=== PATIENT | female | born 2000 | race Caucasian/White ===

== ENCOUNTER → 2019-11-23 17:35 | Outpatient (BNVA) | payer SELFPAY | PROVIDERS: Family Provider Nurse Practitioner; PCP Nurse Practitioner; Visit Provider Nurse Practitioner Family | DX: R50.9 Fever, unspecified (principal) | CPT/HCPCS: 87804 ==

== ENCOUNTER → 2019-12-08 09:04 | Outpatient (BNVA) | payer SELFPAY | PROVIDERS: Family Provider Nurse Practitioner; PCP Nurse Practitioner; Visit Provider Nurse Practitioner Family | DX: R10.84 Generalized abdominal pain (principal); K21.9 Gastro-esophageal reflux disease without esophagitis; Z90.49 Acquired absence of other specified parts of digestive tract | CPT/HCPCS: 81003 ==

== ENCOUNTER 2019-12-10 12:28 | Outpatient (CLI) | payer SELFPAY ==
--- NOTE | 2019-12-10 12:40 | XR_ITS ---
WS: [id number] KUB, 12/10/2019 Clinical Data: GENERALIZED ABDOMINAL PAIN Comparison: Flat and upright films of the abdomen, 04/19/2016. Findings: No abnormal intraabdominal masses or calcifications are seen. There is no dilatated small bowel or ev idence of obstruction. There is a moderate amount of fecal material in the colon. There are clips in the right upper quadran t from a cholecystectomy. XR/XR KUB [id number] Impression: Negative KUB.
[2019-12-10 13:25] LABS: Basophils % 0.4 %; Eosinophils # 0.1 10^3/uL (0.0-0.8); Eosinophils % 1.5 %; Hematocrit 40.6 % (37.0-47.0); Hemoglobin 12.8 g/dL (11.5-15.3); Lymphocytes # 2.7 10^3/uL (0.8-4.8); Lymphocytes % 37.1 %; Mean Corpuscular HGB Conc 31.5 g/dL (30.0-36.0); Mean Corpuscular Hemoglobin 26.5 pg (28.0-34.0); Mean Corpuscular Volume 84.1 fL (81-99); Mean Platelet Volume 9.4 fL (7.4-10.4); Monocytes # 0.6 10^3/uL (0.2-0.9); Monocytes % 8.4 %; Neutrophils # 3.8 10^3/uL (1.8-7.7); Neutrophils % 52.2 %; Nucleated Red Blood Cells % 0 %; Platelet Count 362 10^3/cmm (130-400); Red Blood Count 4.83 10^6/uL (4.1-5.3); Red Cell Distribution Width 12.8 % (12.1-15.1); White Blood Count 7.3 10^3/uL (4.0-10.0)
[2019-12-10 13:45] LABS: Alanine Aminotransferase 9 U/L (0-33); Albumin Level 3.6 g/dL (3.5-5.2); Alkaline Phosphatase 103 IU/L (35-105); Anion Gap 13.5 (5-19); Aspartate Amino Transferase 12 U/L (0-32); Blood Urea Nitrogen 7 mg/dL (6-20); Calcium 9.4 mg/dL (8.5-10.5); Carbon Dioxide 26 mmol/L (22-29); Chloride 102 mmol/L (98-107); Glomerular Filtration Rate 126.2 mL/min (90-130); Glucose 112 mg/dL (74-109); Potassium 4.5 mmol/L (3.5-5.1); Sodium 137 mmol/L (136-145); Total Bilirubin 0.2 mg/dL (0.15-1.2); Total Protein 7.6 g/dL (6.6-8.7)
== END 2019-12-10 12:29 | disposition home or self-care (01) ==
PROVIDERS: Family Provider Nurse Practitioner; PCP Nurse Practitioner; Visit Provider Nurse Practitioner Family
DX: R10.84 Generalized abdominal pain (principal)
CPT/HCPCS: 74018; 80053; 85025

== ENCOUNTER → 2020-09-05 15:04 | Outpatient (BNVA) | payer OTHER, SELFPAY | PROVIDERS: Family Provider Nurse Practitioner; PCP Nurse Practitioner; Visit Provider Nurse Practitioner | DX: Z11.59 Encounter for screening for other viral diseases (principal) | CPT/HCPCS: 87635 ==

== ENCOUNTER → 2020-10-24 10:05 | Outpatient (BNVA) | payer SELFPAY | PROVIDERS: Family Provider Nurse Practitioner; PCP Nurse Practitioner; Visit Provider Nurse Practitioner Family | DX: M25.571 Pain in right ankle and joints of right foot (principal); M79.671 Pain in right foot | CPT/HCPCS: 73610; 73630 ==

== ENCOUNTER → 2020-11-23 10:29 | Outpatient (BNVA) | payer OTHER, SELFPAY | PROVIDERS: Family Provider Nurse Practitioner; PCP Nurse Practitioner; Visit Provider Nurse Practitioner Family | DX: Z20.828 Contact with and (suspected) exposure to other viral communicable diseases (principal); J06.9 Acute upper respiratory infection, unspecified | CPT/HCPCS: 87635 ==

== ENCOUNTER → 2021-05-18 10:10 | Outpatient (BNVA) | payer SELFPAY | PROVIDERS: Family Provider Nurse Practitioner; PCP Nurse Practitioner; Visit Provider Registered Nurse Neonatal Intensive Care | DX: J02.0 Streptococcal pharyngitis (principal) | CPT/HCPCS: 87880 ==

== ENCOUNTER 2021-07-16 17:41 | Emergency (ER) | payer SELFPAY ==
[2021-07-16 17:59] VITALS: BP 133/87; PULSE 98; RESP 18; TEMP 36.9; O2SAT 100; BMI 44.9
--- NOTE | 2021-07-16 20:46 | CTR_ITS ---
PROCEDURE INFORMATION: Exam: CT Abdomen And Pelvis With Contrast Exam date and time: 07/16/2021 8:46 PM Age: 20 years old Clinical indication: Nausea and vomiting and other: Diarrhea; Abdominal pain; Localized; Right lower quadrant (rlq); Prior surgery; Surgery type: Gb; Additional info: Abd apin since Friday right sided TECHNIQUE: Imaging protocol: Computed tomography of the abdomen and pelvis with contrast. Radiation optimization: All CT scans at this facility use at least one of these dose optimization techniques: automated exposure control; mA and/or kV adjustment per patient size (includes targeted exams where dose is matched to clinical indication); or iterative reconstruction. Contrast material: OMNI 300; Contrast volume: 95 ml; Contrast route: INTRAVENOUS (IV); COMPARISON: CT Abdomen/Pelvis Renal [id number] 01/05/2018 10:25 PM RADIATION DOSE METRICS: Total DLP (mGy-cm): 1892.9 FINDINGS: Lungs: The lung bases are clear. No effusion Liver: Normal. No mass. Gallbladder and bile ducts: There has been a cholecystectomy. Pancreas: Normal. No ductal dilation. Spleen: Normal. No splenomegaly. Adrenal glands: Normal. No mass. Kidneys and ureters: Normal. No hydronephrosis. Stomach and bowel: Unremarkable. No obstruction. No mucosal thickening. Appendix: No evidence of appendicitis. Intraperitoneal space: Unremarkable. No free air. No significant fluid collection. Vasculature: Unremarkable. No abdominal aortic aneurysm. Lymph nodes: Single, nonspecific mildly enlarged mesenteric lymph node, possibly reactive. Urinary bladder: Unremarkable as visualized. Reproductive: 3.1 cm left ovarian cyst. Bones/joints: Unremarkable. No acute fracture. Soft tissues: Nonspecific 2.7 by 1.7 cm left breast lesion. Consider evaluation by dedicated breast imaging center. CT/CT abdomen pelvis w con* [id number] IMPRESSION: 1. No cause for acute pain is identified. 2. Nonspecific 2.7 by 1.7 cm left breast lesion. Consider evaluation by dedicated breast imaging center. 3. 3.1 cm left ovarian cyst. Radiation Dose CTDIVOL = (mGy): DLP = 1892.9 (mGy-cm)
--- NOTE | 2021-07-16 20:48 | ED_ITS ---
HPI - Abdominal Pain General: Chief Complaint: Abdominal Pain Stated Complaint: Rt side Pain, Throwing up, Diarrhea Time Seen by Provider: 07/16/21 20:40 History of Present Illness: HPI narrative: Patient states she has had right- sided abdominal pain since Friday. Said she has had a fever. Also has had some diarrhea and vomiting. Is able to keep fluids down but not able to eat. He has had her gallbladder taken out past. Was told she had irritable bowel even though she is not had any testing done to confirm this. MD elicited complaint: abdominal pain Pertinent past history: other (Removal of gallbladder) Onset (ago): day(s) Pain Consistency: constant Location: RUQ and RLQ Severity: moderate Quality: cramping and aching Radiation: RLQ Relieving factors: nothing Associated Symptoms: Reports fever(s), vomiting and other (Diarrhea) Related Data: Date of Last Menstrual Period: 06/13/21 Review of Systems Const: Reports: fever(s) Eyes: Denies: change in vision or blurry vision ENMT: Denies: throat pain or nasal congestion Card: Denies: chest pain or dyspnea on exertion Resp: Denies: dyspnea, productive cough or non-productive cough GI: Reports: vomiting and other (Diarrhea) Musc: Denies: extremity pain Skin/Breast: Denies: rash Neuro: Denies: headache(s) Psych: Denies: anxiety or depression Edmund/Lymph: Denies: easy bruising PFS ED PFSH: Medical History Acid reflux IBS (irritable bowel syndrome) Obesity, morbid, BMI 40.0-49.9 Surgical History Hx of cholecystectomy 2019 Family History Other Cancer Chronic kidney disease (CKD) Diabetes Hypertension Denies family history of Dementia Stroke Social History Second hand smoke exposure: No Smoking risk assessment/counseling performed?: No Alcohol intake: current Alcohol intake frequency: holidays/special occasions only Desire information about alcohol rehabilitation?: No Counseling given: No Desire information about substance/drug rehabilitation?: No Counseling given: No Adopted: No Caregiver/support person: No Lives independently: Yes Household members: significant other Housing: House Marital status: Single Number of children: 0 service: No Current occupational status: employed Current occupation: [employer] History of recent travel: No Sexually active: Yes Current gender identity: Female Female Reproductive History: Date of last menstrual period: 06/13/21 Para: 0 Physical Exam Const: COMMON NORMALS: no acute distress, average body habitus and patient oriented x3 HENMT: COMMON NORMALS: normocephalic HEAD & SCALP: normal to inspection and normocephalic FACE & SINUS: normal facial exam Eye: COMMON NORMALS: conjunctivae normal GENERAL EYE: appearance normal, both eyes and all related structures CONJUNCTIVA: Yes conjunctivae normal Neck/C-Spine: COMMON NORMALS: no JVD Chest: COMMONS NORMALS: normal inspection of the chest Resp: COMMON NORMALS: normal respiratory effort and clear to auscultation bilaterally AUSCULTATION: clear to auscultation bilaterally Cardio: COMMON NORMALS: no JVD, regular rate and regular rhythm RATE: regular rate RHYTHM: regular rhythm GI: AUSCULTATION: Yes normoactive bowel sounds PALPATION: Yes Tenderness to palpation present (GI) Details: RLQ and RUQ Extremity: COMMON NORMALS: normal to inspection and full ROM Neuro: COMMON NORMALS: patient oriented x3 Course Vital Signs: Vital signs: Vital Signs Temperature 98.4 F 07/16/21 17:59 Pulse Rate 83 07/16/21 23:25 Respiratory Rate 20 H 07/16/21 23:25 Blood Pressure 154/90 07/16/21 23:25 Pulse Oximetry 100 07/16/21 23:25 MDM - Abdominal Pain MDM Narrative: Medical decision making narrative: Abdominal pain unspecified. Possible IBS. Possible gastroenteritis. Patient follow-up primary care provider if no significant improvement. Differential Diagnosis: Differential diagnosis abdominal pain: Likely abdominal pain, acute appendicitis, constipation and gastroenteritis Lab Data: Labs: Lab Results 07/16/21 07/16/21 07/16/21 Range/Units 21:10 21:10 21:45 WBC 14.5 H (4.0-10.0) 10^3/ uL RBC 4.88 (4.1-5.3) 10^6/u L Hgb 13.0 (11.5-15.3) g/dL Hct 41.3 (37.0-47.0) % MCV 84.6 (81-99) fl MCH 26.6 L (28.0-34.0) pg MCHC 31.5 (30.0-36.0) g/dL RDW 13.4 (12.1-15.1) % Plt Count 424 H (130-400) 10^3/c mm MPV 10.1 (7.4-10.4) fL Neut % (Auto) 67.7 % Lymph % (Auto) 24.8 % [place] % (Auto) 6.1 % Eos % (Auto) 0.6 % Baso % (Auto) 0.3 % Neut # (Auto) 9.83 H (1.8-7.7) 10^3/u L Lymph # (Auto) 3.6 (0.8-4.8) 10^3/u L [place] # (Auto) 0.9 (0.2-0.9) 10^3/u L Eos # (Auto) 0.1 (0.0-0.8) 10^3/u L Baso # (Auto) 0.0 (0.0-0.1) 10^3/u L Nucleated RBC % (a uto) 0 % Nucleated RBCs # 0.0 /100WBC Sodium 139 (136-145) mmol/L Potassium 4.2 (3.5-5.1) mmol/L Chloride 103 (98-107) mmol/L Carbon Dioxide 23 (22-29) mmol/L Anion Gap 17.2 (5-19) BUN 6 (6-20) mg/dL Creatinine 0.5 (0.5-0.9) mg/dL GFR Calculation 154.3 H (90-130) mL/min Glucose 81 (65-115) mg/dL Calculated Osmolal ity 285 (285-295) mOsm/k g Calcium 9.2 (8.5-10.5) mg/dL Total Bilirubin 0.2 (0.15-1.2) mg/dL AST 11 (0-32) U/L ALT 9 (0-33) U/L Alkaline Phosphata se 125 H (35-105) IU/L Total Protein 7.0 (6.6-8.7) g/dL Albumin 4.0 (3.5-5.2) g/dL Globulin 3.0 (1.3-4.6) g/dL Lipase 24 (13-60) U/L HCG, Qual Negative (Negative) Urine Color (Yellow) Urine Appearance (CLEAR) Urine pH (5-7) Ur Specific Gravit y (1.005-1.030) Urine Protein (Negative) Urine Glucose (UA) (Normal) Urine Ketones (Negative) Urine Blood (Negative) Urine Nitrate (Negative) Urine Bilirubin (Negative) Urine Urobilinogen (Negative) mg/dL Ur Leukocyte Tiffanie ase (Negative) 07/16/21 Range/Units 21:45 WBC (4.0-10.0) 10^3/ uL RBC (4.1-5.3) 10^6/u L Hgb (11.5-15.3) g/dL Hct (37.0-47.0) % MCV (81-99) fl MCH (28.0-34.0) pg MCHC (30.0-36.0) g/dL RDW (12.1-15.1) % Plt Count (130-400) 10^3/c mm MPV (7.4-10.4) fL Neut % (Auto) % Lymph % (Auto) % [place] % (Auto) % Eos % (Auto) % Baso % (Auto) % Neut # (Auto) (1.8-7.7) 10^3/u L Lymph # (Auto) (0.8-4.8) 10^3/u L [place] # (Auto) (0.2-0.9) 10^3/u L Eos # (Auto) (0.0-0.8) 10^3/u L Baso # (Auto) (0.0-0.1) 10^3/u L Nucleated RBC % (a uto) % Nucleated RBCs # /100WBC Sodium (136-145) mmol/L Potassium (3.5-5.1) mmol/L Chloride (98-107) mmol/L Carbon Dioxide (22-29) mmol/L Anion Gap (5-19) BUN (6-20) mg/dL Creatinine (0.5-0.9) mg/dL GFR Calculation (90-130) mL/min Glucose (65-115) mg/dL Calculated Osmolal ity (285-295) mOsm/k g Calcium (8.5-10.5) mg/dL Total Bilirubin (0.15-1.2) mg/dL AST (0-32) U/L ALT (0-33) U/L Alkaline Phosphata se (35-105) IU/L Total Protein (6.6-8.7) g/dL Albumin (3.5-5.2) g/dL Globulin (1.3-4.6) g/dL Lipase (13-60) U/L HCG, Qual (Negative) Urine Color Yellow (Yellow) Urine Appearance Clear (CLEAR) Urine pH 6 (5-7) Ur Specific Gravit y 1.015 (1.005-1.030) Urine Protein Neg (Negative) Urine Glucose (UA) Norm (Normal) Urine Ketones Negative (Negative) Urine Blood Neg (Negative) Urine Nitrate Negative (Negative) Urine Bilirubin Neg (Negative) Urine Urobilinogen Norm (Negative) mg/dL Ur Leukocyte Tiffanie ase Negative (Negative) Discharge Plan Discharge Patient Disposition: Home Clinical Impression: Lesion of breast Abdominal pain Qualifiers: Abdominal location: right upper quadrant Qualified Code(s): R10.11 - Right upper quadrant pain Condition: Stable Prescriptions: New Zofran 4 mg tablet 4 mg PO Q8H 3 Days Qty: 9 RF: 0 Celebrex 100 mg capsule 100 mg PO BID Qty: 20 RF: 0 No Action dicyclomine 10 mg capsule 10 mg PO TID Qty: 90 RF: 0 Contrave 8-90 mg tablet extended release 2 tab PO Q12H Qty: 120 RF: 0 Probiotic 1 cap PO DAILY RF: 0 Discharge Orders: Discharge ED (Routine); Ordered 07/16/21 Ordered By: Olman Platt Referrals: Zac Shukla, TRAFFIC ROUTING ENGINEER-C [Primary Care Provider] - Discharge Diet: Advance as tolerated Discharge Activity: Resume usual activity Patient Instructions: Abdominal Pain (ED) Activity Restrictions/Additional Instructions: Follow-up with medical provider as directed. Take medications as prescribed. Return to the ER or your medical provider if condition worsens. Please read and understand discharge instructions. If any questions ask please. Follow-up with Zac Shukla and see about getting scheduled at the breast care center about getting ultrasound on the lesion it was identified on the CAT scan of your left breast. Stand Alone Forms: Work/School Release Coding Level of Care Code ED Dog Trainer for Aubrey Fwd Exam Comprehensive
[2021-07-16 21:26] LABS: Basophils % 0.3 %; Eosinophils # 0.1 10^3/uL (0.0-0.8); Eosinophils % 0.6 %; Hematocrit 41.3 % (37.0-47.0); Lymphocytes # 3.6 10^3/uL (0.8-4.8); Lymphocytes % 24.8 %; Mean Corpuscular HGB Conc 31.5 g/dL (30.0-36.0); Mean Corpuscular Hemoglobin 26.6 pg (28.0-34.0); Mean Corpuscular Volume 84.6 fl (81-99); Mean Platelet Volume 10.1 fL (7.4-10.4); Monocytes # 0.9 10^3/uL (0.2-0.9); Monocytes % 6.1 %; Neutrophils # 9.83 10^3/uL (1.8-7.7); Neutrophils % 67.7 %; Nucleated Red Blood Cells % 0 %; Platelet Count 424 10^3/cmm (130-400); Red Blood Count 4.88 10^6/uL (4.1-5.3); Red Cell Distribution Width 13.4 % (12.1-15.1); White Blood Count 14.5 10^3/uL (4.0-10.0)
[2021-07-16 21:48] LABS: Alanine Aminotransferase 9 U/L (0-33); Alkaline Phosphatase 125 IU/L (35-105); Anion Gap 17.2 (5-19); Aspartate Amino Transferase 11 U/L (0-32); Blood Urea Nitrogen 6 mg/dL (6-20); Calcium 9.2 mg/dL (8.5-10.5); Carbon Dioxide 23 mmol/L (22-29); Chloride 103 mmol/L (98-107); Glomerular Filtration Rate 154.3 mL/min (90-130); Glucose 81 mg/dL (65-115); Lipase 24 U/L (13-60); Osmolality Calculated 285 mOsm/kg (285-295); Potassium 4.2 mmol/L (3.5-5.1); Sodium 139 mmol/L (136-145); Total Bilirubin 0.2 mg/dL (0.15-1.2)
[2021-07-16] MEDS: ketorolac 30 mg/mL INJ IVP (21:53)
[2021-07-16] MEDS: sodium chloride 0.9% 1,000 ML 999 ML IV (21:54)
[2021-07-16] MEDS: ketorolac 60 mg/2 mL INJ IM (21:54)
[2021-07-16 22:02] VITALS: BP 131/97; PULSE 84; RESP 16
[2021-07-16 22:16] LABS: Add Urine Microscopic? NO; Charge for UA Resulting for Rev
[2021-07-16 22:17] LABS: Bilirubin Urine Neg (Negative); Blood Urine Neg (Negative); Glucose Urine UA Norm (Normal); Ketones Urine Negative (Negative); Leukocyte Esterase Urine Negative (Negative); Nitrate Urine Negative (Negative); Protein Urine Neg (Negative); Specific Gravity, Urine 1.015 (1.005-1.030); Urine Appearance Clear (CLEAR); Urine Color Yellow (Yellow); Urobilinogen Urine Norm (Negative); pH Urine 6 (5-7)
[2021-07-16 22:19] LABS: HCG Qualitative Urine. Negative (Negative)
[2021-07-16] MEDS: iohexol 300 mg/mL 100 mL Btl IV (22:36)
[2021-07-16 23:25] VITALS: BP 154/90; PULSE 83; RESP 20; O2SAT 100
== END 2021-07-16 23:26 | disposition home or self-care (01) ==
PROVIDERS: Emergency Medicine; Emergency Provider Nurse Practitioner Family; PCP Nurse Practitioner
DX: R10.11 Right upper quadrant pain (principal); N64.9 Disorder of breast, unspecified
CPT/HCPCS: 74177; 80053; 81003; 81025; 83690; 85025; 96361; 96374; 99283; J1885; J7030; Q9967

== ENCOUNTER 2022-03-11 17:06 | Emergency (ER) | payer SELFPAY ==
[2022-03-11 17:11] VITALS: BP 144/86; PULSE 99; RESP 18; TEMP 36.4; O2SAT 98; BMI 44.9
--- NOTE | 2022-03-11 17:37 | W.ED.ANIMALB ---
HPI - Animal Bite General: Chief Complaint: Animal Bite Stated Complaint: Just needs a tetanus Shot Time Seen by Provider: 03/11/22 17:14 History of Present Illness: Patient is a 21-year-old female comes to the ED with a dog bite. Dog bite injury on distal end of first digit on right hand. Dog bite occurred earlier today when she was breaking up a fight between her dog and her friend's dog. Both dogs are fully vaccinated and have been vaccinated for rabies as well. Patient cleaned dog bite wound and then applied Band-Aid on it before coming to the ED. Patient needs an updated tetanus shot. Associated symptoms: Deny chills, fever(s) or headache(s) Review of Systems Const: Denies: fever(s), chills or fatigue Eyes: Denies: change in vision or eye discomfort ENMT: Denies: throat pain, odynophagia, nasal discharge or nasal congestion Card: Denies: chest pain, palpitations, edema, swelling of feet/ankles, dyspnea on exertion or orthopnea Resp: Denies: dyspnea, productive cough or non-productive cough GI: Denies: abdominal pain, nausea, vomiting, diarrhea, constipation or hematochezia : Denies: flank pain, dysuria or hematuria Musc: Denies: neck pain, back pain or extremity swelling Skin/Breast: Reports: new lesions (Dog bite puncture wound to finger right hand.); Denies: rash Neuro: Denies: headache(s), numbness in extremities or weakness in extremities PFS ED PFSH: Medical History Acid reflux IBS (irritable bowel syndrome) Obesity, morbid, BMI 40.0-49.9 Surgical History Hx of cholecystectomy 2019 Family History Other Cancer Chronic kidney disease (CKD) Diabetes Hypertension Denies family history of Dementia Stroke Social History Smoking and tobacco status: never smoked Second hand smoke exposure: No Smoking risk assessment/counseling performed?: No Alcohol intake: current Alcohol intake frequency: holidays/special occasions only Desire information about alcohol rehabilitation?: No Counseling given: No Desire information about substance/drug rehabilitation?: No Counseling given: No Adopted: No Caregiver/support person: No Lives independently: Yes Household members: significant other Housing: House Marital status: Single Number of children: 0 service: No Current occupational status: employed Current occupation: [employer] History of recent travel: No Sexually active: Yes Current gender identity: Female Female Reproductive History: Date of last menstrual period: 06/13/21 Para: 0 Physical Exam Const: COMMON NORMALS: no acute distress, patient oriented x3 and alert GENERAL APPEARANCE: cooperative and comfortable HENMT: COMMON NORMALS: normocephalic HEAD & SCALP: normocephalic MOUTH: Normal oral and palatal mucosa present THROAT: posterior oropharynx normal and uvula midline Neck/C-Spine: COMMON NORMALS: supple GENERAL: Yes normal visual inspection Resp: COMMON NORMALS: normal respiratory effort, No retractions, No use of accessory muscles and clear to auscultation bilaterally AUSCULTATION: clear to auscultation bilaterally Cardio: COMMON NORMALS: regular rate, regular rhythm, S1 normal heart sound present, S2 normal heart sound present, No gallops present (Cardio), No clicks present (Cardio), No murmurs present (Cardio) and Peripheral pulses 2+ throughout RATE: regular rate RHYTHM: regular rhythm HEART SOUNDS: S1 normal heart sound present and S2 normal heart sound present PERIPHERAL PULSES: Peripheral pulses 2+ throughout GI: COMMON NORMALS: Normal to inspection, nondistended, normoactive bowel sounds present, Soft to palpation, non-tender and no masses PALPATION: Yes Soft to palpation : COMMON NORMALS: Yes no CVA tenderness BLADDER/KIDNEY EXAM: Yes no CVA tenderness Back/Pelvis: COMMON NORMALS: no CVA tenderness Extremity: NARRATIVE EXTREMITY EXAM: Dog bite puncture wound on right index finger. Wound is superficial. No nailbed or nail damage noted. No active bleeding seen. GENERAL: Yes normal exam except as noted Neuro: COMMON NORMALS: patient oriented x3 and moves all extremities SENSORIUM/ORIENTATION: Yes alert Skin: NARRATIVE SKIN EXAM: Dog bite puncture wound on right index finger. Wound is superficial. No nailbed or nail damage noted. No active bleeding seen. GENERAL SKIN EXAM: dry skin Course Vital Signs: Vital signs: Vital Signs Temperature 97.5 F L 03/11/22 17:11 Pulse Rate 99 03/11/22 17:11 Respiratory Rate 18 03/11/22 17:11 Blood Pressure 144/86 03/11/22 17:11 Pulse Oximetry 98 03/11/22 17:11 MDM - Animal Bite Medical Decision Making Patient is a 21-year-old female comes to the ED with dog bite. She was breaking up a fight between her dog and her friend's dog. Both dogs are fully vaccinated including their rabies shot. Patient does not have updated tetanus and came to the ED to get tetanus shot. has superficial dog bite to distal end of right index finger. No nailbed or nail damage noted. Vital stable. Patient appears nontoxic and in no acute distress or pain. She was given updated tetanus here in the ED. She was discharged home with a prescription for Augmentin. Told to follow-up with PCP in the next week for reevaluation. Return to ED precautions given. Patient stood agree with plan. Discharge Plan Discharge Patient Disposition: Home Clinical Impression: Dog bite of finger Qualifiers: Encounter type: initial encounter Qualified Code(s): S61.259A - Open bite of unspecified finger without damage to nail, initial encounter Condition: Stable Prescriptions: New Augmentin 500-125 mg tablet 1 tab PO BID 7 Days Qty: 14 0RF No Action triamcinolone acetonide 0.1 % cream 1 applic topical BID Qty: 80 0RF prednisone 20 mg tablet See Rx Instructions PO DAILY 11 Days Qty: 19 0RF Rx Instructions: Take 3 tabs x 3 days then 2 tabs x 3 days then 1 tab x 3 days then 1/2 tab x 2 days. azithromycin [Zithromax Z-Quan] 250 mg tablet See Rx Instructions PO .COMPLEX Qty: 6 0RF Rx Instructions: For 250 mg dose pack: take 500 mg today (day 1), then 250 mg for 4 days (days 2-5) PO budesonide-formoterol [Symbicort] 160-4.5 mcg/actuation HFA aerosol inhaler 2 puff inhalation Q12H Qty: 10.2 6RF ProAir RespiClick 90 mcg/actuation aerosol powdr breath activated 2 inh inhalation QID PRN (Reason: shortness of breath or wheezing) Qty: 1 6RF Probiotic 1 cap PO DAILY 0RF Discharge Orders: Discharge ED (Routine); Ordered 03/11/22 Ordered By: Yaw Hines Referrals: Zac Shukla, TIN WHIZ MACHINE OPERATOR-C [Primary Care Provider] - Discharge Diet: Regular Discharge Activity: Resume usual activity Patient Instructions: Animal Bite (ED) Activity Restrictions/Additional Instructions: Follow-up with medical provider as directed in the next 7 to 10 days reevaluation. Take medications as prescribed. Keep dog bite puncture wound cleaned and daily and apply triple antibiotic ointment and bandage on it as well. Return to the ER or your medical provider if condition worsens. Please read and understand discharge instructions. Thank you for choosing [facility] for your healthcare needs today. Please realize this is an emergency room and that we are providing you with a medical screening exam and this may not be complete and all inclusive of all the testing and or work up that you may need to determine your ailment or severity of your illness. It is very important that you follow up as instructed or that you return to the Emergency Department should you have concerns or if your condition changes or worsens in any way. Coding Level of Care Code ED Landscaping Crew Leader for Aubrey Mcdaniels Exam Comprehensive
[2022-03-11] MEDS: tetanus-dipt-pertussis 0.5 mL SDV IM (17:47)
[2022-03-11] MEDS: amoxicillin-clav 500-125 mg Tablet 1 TAB PO (17:47)
== END 2022-03-11 18:00 | disposition home or self-care (01) ==
PROVIDERS: Emergency Provider Physician Assistant; PCP Nurse Practitioner
DX: S60.470A Other superficial bite of right index finger, initial encounter (principal); W54.0XXA Bitten by dog, initial encounter; Z23 Encounter for immunization
CPT/HCPCS: 90471; 90715; 99283

== ENCOUNTER 2022-07-24 11:09 | Emergency (ER) | payer MEDICAID, SELFPAY ==
[2022-07-24 11:37] VITALS: BP 139/94; PULSE 90; RESP 18; TEMP 36.6; O2SAT 98; BMI 41.9
--- NOTE | 2022-07-24 12:31 | US_ITS ---
WS: [id number] EARLY OBSTETRICAL ULTRASOUND (<14 WEEKS). HISTORY: eval preg COMPARISON: None available. Single intrauterine gestational sac is identified. Suboptimal M-mode tracing of the heart. Heart rate documented at 180 but poorly visualized racing. [place]-rump length measures 2.7 cm which corresponds to a gestation of 9w3d. No yolk sac identified. Cannot evaluate for subchorionic hemorrhage. No free fluid. Both ovaries are identified by transabdominal imaging. Very poor Doppler evaluation of the RIGHT ovar y. US/US OB <= 14 weeks fetus [id number] IMPRESSION: 1. Single intrauterine gestation of 9 weeks 3 days with an EDC of 02/23/2023. 2. Only transabdominal imaging is submitted. This is a very limited evaluation of this early intrauterine gestation and ovaries. If the patient is having adn exal pain transvaginal imaging for better evaluation of the ovaries is recommen ded. If patient is experiencing vaginal bleeding transvaginal imaging should al so be performed.
[2022-07-24] MEDS: acetaminophen 500 mg Tablet PO (12:37)
[2022-07-24 12:46] LABS: Add Urine Microscopic? NO; Charge for UA Resulting for Rev
[2022-07-24 12:52] LABS: Bilirubin Urine Neg (Negative); Blood Urine Neg (Negative); Glucose Urine UA Norm (Normal); Ketones Urine Negative (Negative); Leukocyte Esterase Urine Negative (Negative); Nitrate Urine Negative (Negative); Protein Urine Neg (Negative); Urine Appearance Clear (CLEAR); Urine Color Yellow (Yellow); Urobilinogen Urine Norm (Negative); pH Urine 7 (5-7)
--- NOTE | 2022-07-24 13:09 | ED_ITS ---
HPI - General Adult General: Chief complaint: General Medical Stated complaint: High fever and sore throat Time Seen by Provider: 07/24/22 12:04 History of Present Illness: Patient is a 21-year-old female who presents the emergency room with complaints of sore throat and fever x 1 day and new onset of pelvic cramps since this AM. Patient tells me she is currently 9 weeks but has not had any ultrasound. Patient reports that earlier today she has had intermittent cramps but denies any vaginal bleeding. Since yesterday, patient has been having a sore throat with fever. Patient denies any other complaints including nausea/vomiting, chest pain, shortness breath, palpitation or lightheadedness. Patient denies any cough, or any recent sick contact. It was reported in triage note the patient had vomiting and lower back pain. However currently patient denies having any symptoms. Onset:1 day of sore throat, pelvic cramps since earlier today Duration:1 day Location:home Severity:mild/moderate Associated symptoms: Deny chest pain, dyspnea, nausea, rash, palpitations or vomiting Review of Systems Const: Reports: fever(s); Denies: chills Eyes: Denies: change in vision ENMT: Reports: other (+sore throat); Denies: mouth pain Card: Denies: chest pain or palpitations Resp: Denies: dyspnea or non-productive cough GI: Denies: abdominal pain, nausea, vomiting or diarrhea : Reports: other (+pelvic cramps); Denies: dysuria Musc: Denies: extremity pain Skin/Breast: Denies: rash or new lesions Neuro: Denies: weakness in extremities Psych: Reports: other (Normal mood) Edmund/Lymph: Denies: easy bruising PFSH ED PFSH: Medical History Acid reflux IBS (irritable bowel syndrome) Obesity, morbid, BMI 40.0-49.9 Surgical History Hx of cholecystectomy 2019 Family History Other Cancer Chronic kidney disease (CKD) Diabetes Hypertension Denies family history of Dementia Stroke Social History Smoking and tobacco status: never smoked Second hand smoke exposure: No Smoking risk assessment/counseling performed?: No Alcohol intake: current Alcohol intake frequency: holidays/special occasions only Desire information about alcohol rehabilitation?: No Counseling given: No Desire information about substance/drug rehabilitation?: No Counseling given: No Adopted: No Caregiver/support person: No Lives independently: Yes Household members: significant other Housing: House Marital status: Single Number of children: 0 service: No Current occupational status: employed Current occupation: [employer] History of recent travel: No Sexually active: Yes Current gender identity: Female Female Reproductive History: Date of last menstrual period: 06/13/21 Para: 0 Physical Exam Const: COMMON NORMALS: alert HENMT: COMMON NORMALS: atraumatic HEAD & SCALP: atraumatic MOUTH: moist mucous membranes not abnormal Eye: COMMON NORMALS: EOMs intact bilaterally and conjunctivae normal CONJUNCTIVA: Yes conjunctivae normal Neck/C-Spine: COMMON NORMALS: full ROM and supple Resp: COMMON NORMALS: normal respiratory effort and clear to auscultation bilaterally AUSCULTATION: clear to auscultation bilaterally Cardio: COMMON NORMALS: regular rate RATE: regular rate GI: COMMON NORMALS: Soft to palpation and non-tender PALPATION: Yes Soft to palpation Extremity: COMMON NORMALS: full ROM Neuro: SENSORIUM/ORIENTATION: Yes alert MOTOR EXAM: No Abnormal motor strength present and Other motor observations present (no focal motor deficits) Psych: COMMON NORMALS: speech normal SPEECH: Yes normal speech MOOD & AFFECT: Yes euthymic mood Course Vital Signs: Vital signs: Vital Signs Temperature 98.4 F 07/24/22 14:18 Pulse Rate 87 07/24/22 14:18 Respiratory Rate 16 07/24/22 14:18 Blood Pressure 131/82 07/24/22 14:18 Pulse Oximetry 100 07/24/22 14:18 Oxygen Delivery Me thod 07/24/22 14:18 [facility] - General Adult Medical Decision Making Patient is a 21-year-old female who presents the emergency room with complaints of sore throat and fever x 1 day and new onset of pelvic cramps since this AM. On exam, patient has mild posterior pharyngeal erythema. No signs of swelling exudates or uvular deviation. Patient has no focal abdominal tenderness to palpation. White count 12.1 today. Patient is strep antigen negative. Will send for strep culture. COVID and influenza are pending. Ultrasound confirmed an IUP at 9 weeks and 3 days. Patient has no signs of vaginal bleeding. I gave patient close follow-up with OB provider for her first . I have given patient follow up with our insurance case manager to be seen by our o utpatient by OB for establishing care. Patient aware of a call from our insurance case manager to schedule for appointment(s) and verbalizes understanding of the importance of following up. Disposition: Discharge. Patient counseled regarding diagnostic impression, treatment plan. Patient given ED strict return precautions to return for continuation, worsening, or development of new symptoms. Instructed to f/u w/ PCP and OB regarding symptoms today. Patient verbalized understanding. Lab Data : 07/24/22 13:13 07/24/22 13:13 Radiology Impressions Ultrasound 07/24/22 12:31 IMPRESSION: 1. Single intrauterine gestation of 9 weeks 3 days with an EDC of 02/23/2023. 2. Only transabdominal imaging is submitted. This is a very limited evaluation of this early intrauterine gestation and ovaries. If the patient is having adnexal pain transvaginal imaging for better evaluation of the ovaries is recommended. If patient is experiencing vaginal bleeding transvaginal imaging should also be performed. Laboratory Results WBC 12.1 10^3/uL (4.0-10.0) H 07/24/22 13:13 RBC 4.83 10^6/uL (4.1-5.3) 07/24/22 13:13 Hgb 12.9 g/dL (11.5-15.3) 07/24/22 13:13 Hct 41.8 % (37.0-47.0) 07/24/22 13:13 MCV 86.5 fl (81-99) 07/24/22 13:13 MCH 26.7 pg (28.0-34.0) L 07/24/22 13:13 MCHC 30.9 g/dL (30.0-36.0) 07/24/22 13:13 RDW 13.9 % (12.1-15.1) 07/24/22 13:13 Plt Count 400 10^3/cmm (130-400) 07/24/22 13:13 MPV 10.0 fL (7.4-10.4) 07/24/22 13:13 Neut % (Auto) 68.4 % 07/24/22 13:13 Lymph % (Auto) 24.5 % 07/24/22 13:13 [place] % (Auto) 6.1 % 07/24/22 13:13 Eos % (Auto) 0.4 % 07/24/22 13:13 Baso % (Auto) 0.2 % 07/24/22 13:13 Neut # (Auto) 8.25 10^3/uL (1.8-7.7) H 07/24/22 13:13 Lymph # (Auto) 3.0 10^3/uL (0.8-4.8) 07/24/22 13:13 [place] # (Auto) 0.7 10^3/uL (0.2-0.9) 07/24/22 13:13 Eos # (Auto) 0.1 10^3/uL (0.0-0.8) 07/24/22 13:13 Baso # (Auto) 0.0 10^3/uL (0.0-0.1) 07/24/22 13:13 Nucleated RBC % (auto) 0 % 07/24/22 13:13 Nucleated RBCs # 0.0 /100WBC 07/24/22 13:13 Sodium 134 mmol/L (136-145) L 07/24/22 13:13 Potassium 3.6 mmol/L (3.5-5.1) 07/24/22 13:13 Chloride 102 mmol/L (98-107) 07/24/22 13:13 Carbon Dioxide 19 mmol/L (22-29) L 07/24/22 13:13 Anion Gap 16.6 (5-19) 07/24/22 13:13 BUN 7 mg/dL (6-20) 07/24/22 13:13 Creatinine 0.5 mg/dL (0.5-0.9) 07/24/22 13:13 GFR Calculation 152.9 mL/min (90-130) H 07/24/22 13:13 Glucose 87 mg/dL (65-115) 07/24/22 13:13 Calculated Osmolality 275 mOsm/kg (285-295) L 07/24/22 13:13 Calcium 8.9 mg/dL (8.5-10.5) 07/24/22 13:13 Total Bilirubin 0.2 mg/dL (0.15-1.2) 07/24/22 13:13 AST 10 U/L (0-32) 07/24/22 13:13 ALT 9 U/L (0-33) 07/24/22 13:13 Alkaline Phosphatase 94 U/L (35-105) 07/24/22 13:13 Total Protein 7.1 g/dL (6.6-8.7) 07/24/22 13:13 Albumin 3.6 g/dL (3.5-5.2) 07/24/22 13:13 Globulin 3.5 g/dL (1.3-4.6) 07/24/22 13:13 Lipase 21 U/L (13-60) 07/24/22 13:13 Ser , Semi-Qnt 55063.00 mIU/mL 07/24/22 13:13 Urine Color Yellow (Yellow) 07/24/22 12:06 Urine Appearance Clear (CLEAR) 07/24/22 12:06 Urine pH 7 (5-7) 07/24/22 12:06 Ur Specific [place] 1.010 (1.005-1.030) 07/24/22 12:06 Urine Protein Neg (Negative) 07/24/22 12:06 Urine Glucose (UA) Norm (Normal) 07/24/22 12:06 Urine Ketones Negative (Negative) 07/24/22 12:06 Urine Blood Neg (Negative) 07/24/22 12:06 Urine Nitrate Negative (Negative) 07/24/22 12:06 Urine Bilirubin Neg (Negative) 07/24/22 12:06 Urine Urobilinogen Norm mg/dL (Negative) 07/24/22 12:06 Ur Leukocyte Esterase Negative (Negative) 07/24/22 12:06 Nasal Influ A H1 2009 PCR Not detected (NOT DETECT) 07/24/22 12:24 Coronavirus 229E (PCR) Not detected (NOT DETECT) 07/24/22 12:24 Influenza A (H1) PCR Not detected (NOT DETECT) 07/24/22 12:24 Influenza A (H3) PCR Not detected (NOT DETECT) 07/24/22 12:24 Influenza Type A Ag Cancelled 07/24/22 12:24 Influenza Type A (PCR) Not detected (NOT DETECT) 07/24/22 12:24 Influenza Type B Ag Cancelled 07/24/22 12:24 Influenza Type B (PCR) Not detected (NOT DETECT) 07/24/22 12:24 SARS-CoV-2 (PCR) Not detected (NOT DETECT) 07/24/22 12:24 Group A Strep Rapid Negative (Negative) 07/24/22 12:24 Imaging Data Other Imaging: Radiologist's impression: [address] [address] Ultrasound Report Signed Patient: Heron Scott Unit #: [id number] : 2000 Age/Sex: 21 / F ADM Date: 07/24/22 Loc: ER Room/Bed: Attending Dr: Ordering Provider/Ordering MD: Jessica Villar MD Date of Service: 07/24/22 Procedure(s): US OB <= 14 weeks fetus [id number] Accession Number(s): [id number] Report Number: [id number] WS: [id number] ?EARLY OBSTETRICAL ULTRASOUND (<14 WEEKS). HISTORY: eval preg COMPARISON: None available. Single intrauterine gestational sac is identified. Suboptimal M-mode tracing of the heart. Heart rate documented at 180 but poorly visualized racing. [place]-rump length measures 2.7 cm which corresponds to a gestation of 9w3d. No yolk sac identified. Cannot evaluate for subchorionic hemorrhage. No free fluid. Both ovaries are identified by transabdominal imaging. Very poor Doppler evaluation of the RIGHT ovary. US/US OB <= 14 weeks fetus [id number] IMPRESSION: ? 1.? Single intrauterine gestation of 9 weeks 3 days with an EDC of 02/23/2023. 2.? Only transabdominal imaging is submitted. This is a very limited evaluation of this early intrauterine gestation and ovaries. If the patient is having adnexal pain transvaginal imaging for better evaluation of the ovaries is recommended. If patient is experiencing vaginal bleeding transvaginal imaging should also be performed. ? Dictated By: Keira Dyson DO Signed By: Keira Dyson DO Signed Date/Time: 07/24/22 1325 DD/ 1311 Discharge Plan Discharge Patient Disposition: Home Clinical Impression: Sore throat, Pelvic cramping Condition: Stable Prescriptions: New acetaminophen 500 mg tablet 500 mg PO Q6H PRN (Reason: pain) 5 Days Qty: 20 0RF No Action triamcinolone acetonide 0.1 % cream 1 applic topical BID Qty: 80 0RF prednisone 20 mg tablet See Rx Instructions PO DAILY 11 Days Qty: 19 0RF Rx Instructions: Take 3 tabs x 3 days then 2 tabs x 3 days then 1 tab x 3 days then 1/2 tab x 2 days. azithromycin [Zithromax Z-Quan] 250 mg tablet See Rx Instructions PO .COMPLEX Qty: 6 0RF Rx Instructions: For 250 mg dose pack: take 500 mg today (day 1), then 250 mg for 4 days (days 2-5) PO budesonide-formoterol [Symbicort] 160-4.5 mcg/actuation HFA aerosol inhaler 2 puff inhalation Q12H Qty: 10.2 6RF ProAir RespiClick 90 mcg/actuation aerosol powdr breath activated 2 inh inhalation QID PRN (Reason: shortness of breath or wheezing) Qty: 1 6RF Probiotic 1 cap PO DAILY Discharge Orders: Discharge ED (Routine); Ordered 07/24/22 Ordered By: Jessica Villar Referrals: Zac Shukla, DIRECTOR DIVERSITY-C [Primary Care Provider] - Discharge Diet: Advance as tolerated Discharge Activity: Increase activity as tolerated Activity Restrictions/Additional Instructions: Come back if you have any new or concerning issues, new vaginal bleeding, worsening pelvic pain, passage of clot, fever or chills, worsening sore throat, or any new concerning complaints. Our insurance case manager will have you follow-up with OB provider in the next few days. You would be expected to have a phone call with our insurance case manager who will put you on the schedule. You can expect a call from us in the next 2-3 days. If you don't hear from us, call us back in the emergency room at [phone]. Coding Level of Care Code ED Eye Physician for Aubrey Mcdaniels Exam Comprehensive
[2022-07-24 13:12] LABS: Rapid Strep A Test Negative (Negative)
[2022-07-24 13:32] LABS: Basophils % 0.2 %; Eosinophils # 0.1 10^3/uL (0.0-0.8); Eosinophils % 0.4 %; Hematocrit 41.8 % (37.0-47.0); Hemoglobin 12.9 g/dL (11.5-15.3); Lymphocytes % 24.5 %; Mean Corpuscular HGB Conc 30.9 g/dL (30.0-36.0); Mean Corpuscular Hemoglobin 26.7 pg (28.0-34.0); Mean Corpuscular Volume 86.5 fl (81-99); Monocytes # 0.7 10^3/uL (0.2-0.9); Monocytes % 6.1 %; Neutrophils # 8.25 10^3/uL (1.8-7.7); Neutrophils % 68.4 %; Nucleated Red Blood Cells % 0 %; Platelet Count 400 10^3/cmm (130-400); Red Blood Count 4.83 10^6/uL (4.1-5.3); Red Cell Distribution Width 13.9 % (12.1-15.1); White Blood Count 12.1 10^3/uL (4.0-10.0)
[2022-07-24 14:02] LABS: Alanine Aminotransferase 9 U/L (0-33); Albumin Level 3.6 g/dL (3.5-5.2); Alkaline Phosphatase 94 U/L (35-105); Anion Gap 16.6 (5-19); Aspartate Amino Transferase 10 U/L (0-32); Blood Urea Nitrogen 7 mg/dL (6-20); Calcium 8.9 mg/dL (8.5-10.5); Carbon Dioxide 19 mmol/L (22-29); Chloride 102 mmol/L (98-107); Globulin 3.5 g/dL (1.3-4.6); Glomerular Filtration Rate 152.9 mL/min (90-130); Glucose 87 mg/dL (65-115); Lipase 21 U/L (13-60); Osmolality Calculated 275 mOsm/kg (285-295); Potassium 3.6 mmol/L (3.5-5.1); Sodium 134 mmol/L (136-145); Total Bilirubin 0.2 mg/dL (0.15-1.2); Total Protein 7.1 g/dL (6.6-8.7)
[2022-07-24 14:18] VITALS: BP 131/82; PULSE 87; RESP 16; TEMP 36.9; O2SAT 100
[2022-07-24 14:43] LABS: Adenovirus Not Detected (NOT DETECT); Chlamydia Pneumoniae Not Detected (NOT DETECT); Coronavirus 229E,HKU1,NL63,OC4 Not Detected (NOT DETECT); Human Metapneumovirus Not Detected (NOT DETECT); Human Rhinovirus/Enterovirus Not Detected (NOT DETECT); Influenza A Not Detected (NOT DETECT); Influenza A H1 Not Detected (NOT DETECT); Influenza A H1-2009 Not Detected (NOT DETECT); Influenza A H3 Not Detected (NOT DETECT); Influenza B Not Detected (NOT DETECT); Mycoplasma Pneumoniae Not Detected (NOT DETECT); Parainfluenza Virus Type 1 Not Detected (NOT DETECT); Parainfluenza Virus Type 2 Not Detected (NOT DETECT); Parainfluenza Virus Type 3 Not Detected (NOT DETECT); Parainfluenza Virus Type 4 Not Detected (NOT DETECT); Respiratory Syncytial Virus A Not Detected (NOT DETECT); Respiratory Syncytial Virus B Not Detected (NOT DETECT); SARS-COV-2 Not Detected (NOT DETECT)
[2022-07-25 06:32] LABS: Results from Genmark
--- NOTE | 2022-07-25 11:15 | DCPLANNER ---
Addendum entered by Lizzette Barillas 07/26/22 08:17: manager regional sales received the following message from the [facility] clinic regarding follow up appointment: PT IS F/U WITH PCP Original Note: manager regional sales had message to schedule a follow up appointment for patient with [facility]. manager regional sales sent patients information to the front office staff at [facility]. Patients information will be printed and reviewed. Clinic will call patient with appointment information.
== END 2022-07-24 14:30 | disposition home or self-care (01) ==
PROVIDERS: Emergency Provider Emergency Medicine; PCP Nurse Practitioner
DX: O99.891 Other specified diseases and conditions complicating pregnancy (principal); R10.2 Pelvic and perineal pain; J02.9 Acute pharyngitis, unspecified; Z3A.09 9 weeks gestation of pregnancy
CPT/HCPCS: 36415; 76801; 80053; 81003; 83690; 84702; 85025; 87081; 87631; 87635; 87880; 99284

== ENCOUNTER 2022-08-22 16:57 | Emergency (ER) | payer OTHER, MEDICAID, SELFPAY ==
[2022-08-22 17:01] VITALS: BP 136/91; PULSE 119; RESP 16; TEMP 36.7; O2SAT 95; BMI 44.1
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
[2022-08-22 18:52] VITALS: BP 150/101; PULSE 108; RESP 18; O2SAT 99
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
[2022-08-22 19:11] VITALS: BP 118/87; PULSE 100; RESP 16; O2SAT 99
--- NOTE | 2022-08-22 19:23 | PC.NURSE ---
Report from MAXIMO Mcknight. Pt is a bit anxious, but denies needs at this time. VSS.
[2022-08-22 19:35] LABS: Basophils % 0.2 %; Eosinophils % 0.2 %; Hemoglobin 13.3 g/dL (11.5-15.3); Lymphocytes # 2.1 10^3/uL (0.8-4.8); Lymphocytes % 12.4 %; Mean Corpuscular HGB Conc 32.4 g/dL (30.0-36.0); Mean Corpuscular Hemoglobin 28.3 pg (28.0-34.0); Mean Corpuscular Volume 87.2 fl (81-99); Mean Platelet Volume 10.3 fL (7.4-10.4); Monocytes % 5.8 %; Neutrophils # 13.65 10^3/uL (1.8-7.7); Neutrophils % 80.7 %; Nucleated Red Blood Cells % 0 %; Platelet Count 321 10^3/cmm (130-400); Red Cell Distribution Width 14.1 % (12.1-15.1); White Blood Count 16.9 10^3/uL (4.0-10.0)
[2022-08-22] MEDS: sodium chloride 0.9% 1,000 ML 999 ML IV (19:39)
[2022-08-22] MEDS: acetaminophen 500 mg Tablet 1000 MG PO (19:39)
[2022-08-22 19:53] LABS: Alanine Aminotransferase 11 U/L (0-33); Albumin Level 3.7 g/dL (3.5-5.2); Alkaline Phosphatase 88 U/L (35-105); Aspartate Amino Transferase 15 U/L (0-32); Blood Urea Nitrogen 8 mg/dL (6-20); Calcium 9.2 mg/dL (8.5-10.5); Carbon Dioxide 19 mmol/L (22-29); Chloride 104 mmol/L (98-107); Globulin 3.6 g/dL (1.3-4.6); Glomerular Filtration Rate 196.1 mL/min (90-130); Glucose 86 mg/dL (65-115); Lipase 18 U/L (13-60); Osmolality Calculated 280 mOsm/kg (285-295); Sodium 136 mmol/L (136-145); Total Bilirubin 0.2 mg/dL (0.15-1.2); Total Protein 7.3 g/dL (6.6-8.7)
[2022-08-22 19:58] LABS: Creatinine Clr Calc Pharmacy 281.6975
[2022-08-22 19:59] LABS: Anion Gap 16.8 (5-19); Potassium 3.8 mmol/L (3.5-5.1)
== END 2022-08-22 21:25 | disposition home or self-care (01) ==
PROVIDERS: Emergency Provider Emergency Medicine; PCP Nurse Practitioner
DX: O9A.212 Injury, poisoning and certain other consequences of external causes complicating pregnancy, second trimester (principal); S20.211A Contusion of right front wall of thorax, initial encounter; S80.02XA Contusion of left knee, initial encounter; S10.91XA Abrasion of unspecified part of neck, initial encounter; S70.312A Abrasion, left thigh, initial encounter; S30.811A Abrasion of abdominal wall, initial encounter; Z3A.14 14 weeks gestation of pregnancy; V89.2XXA Person injured in unspecified motor-vehicle accident, traffic, initial encounter
CPT/HCPCS: 71045; 73552; 73562; 76700; 76815; 80053; 83690; 85025; 86900; 96360; 99285; J7030

== ENCOUNTER 2022-08-31 06:53 | Emergency (ER) | payer OTHER, MEDICAID, SELFPAY ==
[2022-08-31 07:05] VITALS: BP 117/79; PULSE 93; RESP 15; TEMP 36.8; O2SAT 98; BMI 44.9
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
[2022-08-31 07:13] VITALS: BP 140/86; PULSE 88; O2SAT 98
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
[2022-08-31 08:07] LABS: Basophils % 0.2 %; Eosinophils # 0.1 10^3/uL (0.0-0.8); Eosinophils % 1.1 %; Hematocrit 40.7 % (37.0-47.0); Hemoglobin 13.1 g/dL (11.5-15.3); Lymphocytes # 2.2 10^3/uL (0.8-4.8); Lymphocytes % 23.6 %; Mean Corpuscular HGB Conc 32.2 g/dL (30.0-36.0); Mean Corpuscular Hemoglobin 27.7 pg (28.0-34.0); Monocytes # 0.6 10^3/uL (0.2-0.9); Monocytes % 6.1 %; Neutrophils # 6.52 10^3/uL (1.8-7.7); Neutrophils % 68.5 %; Nucleated Red Blood Cells % 0 %; Platelet Count 317 10^3/cmm (130-400); Red Blood Count 4.73 10^6/uL (4.1-5.3); Red Cell Distribution Width 14.1 % (12.1-15.1); White Blood Count 9.5 10^3/uL (4.0-10.0)
[2022-08-31 08:12] LABS: Add Urine Microscopic? NO; Charge for UA Resulting for Rev
[2022-08-31 08:16] LABS: Bilirubin Urine Neg (Negative); Blood Urine Neg (Negative); Glucose Urine UA Norm (Normal); Ketones Urine Negative (Negative); Leukocyte Esterase Urine Negative (Negative); Nitrate Urine Negative (Negative); Protein Urine Neg (Negative); Specific Gravity, Urine 1.015 (1.005-1.030); Urine Appearance Clear (CLEAR); Urine Color Yellow (Yellow); Urobilinogen Urine 1 mg/dL (Negative); pH Urine 7 (5-7)
[2022-08-31 08:20] LABS: HCG, Serum Qual Positive (Negative)
[2022-08-31 08:32] LABS: Anion Gap 14.7 (5-19); Blood Urea Nitrogen 6 mg/dL (6-20); Calcium 8.9 mg/dL (8.5-10.5); Carbon Dioxide 20 mmol/L (22-29); Chloride 103 mmol/L (98-107); Glomerular Filtration Rate 196.1 mL/min (90-130); Glucose 84 mg/dL (65-115); Osmolality Calculated 275 mOsm/kg (285-295); Potassium 3.7 mmol/L (3.5-5.1); Sodium 134 mmol/L (136-145)
[2022-08-31 08:34] VITALS: PULSE 82; RESP 18; O2SAT 99
== END 2022-08-31 08:36 | disposition home or self-care (01) ==
PROVIDERS: Emergency Provider Family Medicine; PCP Nurse Practitioner
DX: R07.89 Other chest pain (principal); O26.892 Other specified pregnancy related conditions, second trimester; Z3A.15 15 weeks gestation of pregnancy; V89.2XXA Person injured in unspecified motor-vehicle accident, traffic, initial encounter; Z87.891 Personal history of nicotine dependence
CPT/HCPCS: 36415; 71045; 71120; 72040; 80048; 81003; 84703; 85025; 99284

== ENCOUNTER 2022-09-25 00:33 | Emergency (ER) | payer MEDICAID, SELFPAY ==
[2022-09-25 00:38] VITALS: BP 145/101; PULSE 100; RESP 18; TEMP 36.2; O2SAT 99; BMI 48.2
--- NOTE | 2022-09-25 00:42 | ED_ITS ---
HPI - Dental/Oral General: Chief complaint: Dental/Oral Stated complaint: dental pain Time Seen by Provider: 09/25/22 00:34 Source: patient Mode of arrival: ambulatory Limitations: no limitations History of Present Illness: 22-year-old female who is currently 2 weeks patient states she has had a infection to her right upper canine states she saw dentist today who attempted to pull was unable to was placing her on antibiotics get her follow-up with [facility]. She states that her pain is worsened and she is only been taking Tylenol and it has not helped her pain her pain is currently an 8 out of 10 denies any fever denies any difficulty swallowing denies any trismus. Associated symptoms: Denies fever(s) Review of Systems Const: Denies: fever(s), chills, body aches or change in appetite Eyes: Denies: blurry vision or eye discomfort ENMT: Reports: dental pain Card: Denies: chest pain Resp: Denies: dyspnea GI: Denies: abdominal pain, nausea, vomiting or diarrhea : Denies: dysuria Musc: Denies: neck pain or back pain Skin/Breast: Denies: rash Neuro: Denies: headache(s) Psych: Denies: depression [place]/Lymph: Denies: easy bruising All/Imm: Denies: urticaria PFSH ED PFSH: Medical History Acid reflux IBS (irritable bowel syndrome) Obesity, morbid, BMI 40.0-49.9 Surgical History Hx of cholecystectomy 2019 Family History Other Cancer Chronic kidney disease (CKD) Diabetes Hypertension Denies family history of Dementia Stroke Social History Smoking and tobacco status: former smoker Second hand smoke exposure: No Smoking risk assessment/counseling performed?: No Alcohol intake: current Alcohol intake frequency: holidays/special occasions only Desire information about alcohol rehabilitation?: No Counseling given: No Desire information about substance/drug rehabilitation?: No Counseling given: No Adopted: No Caregiver/support person: No Lives independently: Yes Household members: significant other Housing: House Marital status: Single Number of children: 0 service: No Current occupational status: employed Current occupation: [employer] History of recent travel: No Sexually active: Yes Current gender identity: Female Female Reproductive History: Date of last menstrual period: 06/13/21 Para: 0 Physical Exam Const: COMMON NORMALS: no acute distress and patient oriented x3 HENMT: COMMON NORMALS: normocephalic and atraumatic HEAD & SCALP: normocephalic and atraumatic OTHER: Tenderness over right upper canine Eye: COMMON NORMALS: conjunctivae normal CONJUNCTIVA: Yes conjunctivae no rmal Neck/C-Spine: COMMON NORMALS: full ROM Chest: COMMONS NORMALS: normal inspection of the chest Resp: COMMON NORMALS: normal respiratory effort Cardio: COMMON NORMALS: regular rate RATE: regular rate GI: INSPECTION: Yes normal to inspection Extremity: COMMON NORMALS: normal to inspection Neuro: COMMON NORMALS: patient oriented x3 Psych: COMMON NORMALS: mental status grossly normal Skin: COMMON NORMALS: no rashes or lesions noted GENERAL SKIN EXAM: no ra shes or lesions noted Course Vital Signs: Vital signs: Vital Signs Temperature 97.2 F L 09/25/22 00:38 Pulse Rate 100 09/25/22 00:38 Respiratory Rate 18 09/25/22 00:38 Blood Pressure 145/101 09/25/22 00:38 Pulse Oximetry 99 09/25/22 00:38 Oxygen Delivery Me thod 09/25/22 00:38 MDM - Dental/Oral Medical Decision Making Patient presents here with dental pain does have a dental infection her right upper incisor she had seen a dentist today they were unable to pull it she is on antibiotics and attempt to get her follow-up with the surgeon we will place her on hydrocodone in the meantime she is to follow-up return if worsening. Discharge Plan Discharge Patient Disposition: Home Clinical Impression: Pain, dental Condition: Stable Prescriptions: New hydrocodone-acetaminophen 5-325 mg tablet 1 tab PO Q6H PRN (Reason: pain) Qty: 14 0RF No Action triamcinolone acetonide 0.1 % cream 1 applic topical BID Qty: 80 0RF budesonide-formoterol [Symbicort] 160-4.5 mcg/actuation HFA aerosol inhaler 2 puff inhalation Q12H Qty: 10.2 6RF ProAir RespiClick 90 mcg/actuation aerosol powdr breath activated 2 inh inhalation QID PRN (Reason: shortness of breath or wheezing) Qty: 1 6RF Probiotic 1 cap PO DAILY tramadol 50 mg tablet 50 mg PO Q8H PRN (Reason: pain) Qty: 10 0RF Discharge Orders: Discharge ED (Routine); Ordered 09/25/22 Ordered By: Ann Laurent Referrals: Zac Shukla, RESTAURANT ATTENDANT-C [Primary Care Provider] - 1-3 days Discharge Diet: Advance as tolerated Discharge Activity: Resume usual activity Patient Instructions: Toothache (ED) Coding Level of Care Code ED [place] P[employer] Assembler for Aubrey Mcdaniels
[2022-09-25] MEDS: HYDROcodone-acetaminophen 5-325 mg Tablet 1 TAB PO (00:45)
[2022-09-25 00:50] VITALS: BP 163/89; PULSE 94; RESP 18; O2SAT 99
== END 2022-09-25 00:50 | disposition home or self-care (01) ==
PROVIDERS: Emergency Provider Emergency Medicine; PCP Nurse Practitioner
DX: K08.89 Other specified disorders of teeth and supporting structures (principal); Z87.891 Personal history of nicotine dependence
CPT/HCPCS: 99283

== ENCOUNTER → 2022-12-02 11:33 | Outpatient (BNVA) | payer MEDICAID, SELFPAY | PROVIDERS: PCP Nurse Practitioner; Visit Provider Nurse Practitioner Family | DX: J02.9 Acute pharyngitis, unspecified (principal) | CPT/HCPCS: 87071; 87880 ==

== ENCOUNTER 2022-12-04 10:10 | Emergency (ER) | payer MEDICAID, SELFPAY ==
[2022-12-04 10:25] VITALS: BP 135/77; PULSE 107; RESP 16; TEMP 36.6; O2SAT 97
[2022-12-04 10:28] VITALS: BP 125/73; PULSE 89; O2SAT 98
--- NOTE | 2022-12-04 10:48 | ED_ITS ---
HPI - General Adult General: Chief complaint: General Medical Stated complaint: Bad score throat Time Seen by Provider: 12/04/22 10:11 History of Present Illness: Patient is a 22-year-old female that is 7 weeks comes to the ED with sore throat. Symptoms started 4 days ago. She is also having nasal congestion and drainage. Sore throat is not improving and getting worse. Airway is patent. Denies any related complaints. Associated symptoms: Deny chest pain, dyspnea, headache(s), nausea, rash, palpitations or vomiting Review of Systems Const: Denies: fever(s), chills or fatigue Eyes: Denies: change in vision or eye discomfort ENMT: Reports: throat pain, nasal discharge and nasal congestion; Denies: odynophagia Card: Denies: chest pain, palpitations, edema, swelling of feet/ankles, dyspnea on exertion or orthopnea Resp: Denies: dyspnea, productive cough or non-productive cough GI: Denies: abdominal pain, nausea, vomiting, diarrhea, constipation or hematochezia : Denies: flank pain, dysuria or hematuria Musc: Denies: neck pain, back pain or extremity swelling Skin/Breast: Denies: rash or new lesions Neuro: Denies: headache(s), numbness in extremities or weakness in extremities PFSH ED PFSH: Medical History (Updated 12/04/22 @ 10:56 by JASPREET Leyva) Acid reflux IBS (irritable bowel syndrome) Obesity, morbid, BMI 40.0-49.9 Surgical History Hx of cholecystectomy 2019 Family History Other Cancer Chronic kidney disease (CKD) Diabetes Hypertension Denies family history of Dementia Stroke Social History Smoking and tobacco status: former smoker Second hand smoke exposure: No Smoking risk assessment/counseling performed?: No Alcohol intake: current Alcohol intake frequency: holidays/special occasions only Desire information about alcohol rehabilitation?: No Counseling given: No Desire information about substance/drug rehabilitation?: No Counseling given: No Adopted: No Caregiver/support person: No Lives independently: Yes Household members: significant other Housing: House Marital status: Single Number of children: 0 service: No Current occupational status: employed Current occupation: [employer] History of recent travel: No Sexually active: Yes Current gender identity: Female Female Reproductive History: Date of last menstrual period: 06/13/21 Para: 0 Physical Exam Const: COMMON NORMALS: patient oriented x3 and alert GENERAL APPEARANCE: cooperative and comfortable HENMT: COMMON NORMALS: normocephalic HEAD & SCALP: normocephalic MOUTH: Normal oral and palatal mucosa present THROAT: uvula midline, abnormal tonsil bilateral erythema and hypertrophy 2+ and posterior oropharynx abnormal erythema; no exudates Neck/C-Spine: COMMON NORMALS: supple GENERAL: Yes normal visual inspection Resp: COMMON NORMALS: normal respiratory effort, No retractions, No use of a ccessory muscles and clear to auscultation bilaterally AUSCULTATION: clear to auscultation bilaterally Cardio: COMMON NORMALS: regular rate, regular rhythm, S1 normal heart sound present, S2 normal heart sound present, No gallops present (Cardio), No clicks present (Cardio), No murmurs present (Cardio) and Peripheral pulses 2+ throughout RATE: regular rate RHYTHM: regular rhythm HEART SOUNDS: S1 normal heart sound present and S2 normal heart sound present PERIPHERAL PULSES: Peripheral pulses 2+ throughout GI: COMMON NORMALS: Normal to inspection, nondistended, normoactive bowel sounds present, Soft to palpation, non-tender and no masses PALPATION: Yes Soft to palpation : COMMON NORMALS: Yes no CVA tenderness BLADDER/KIDNEY EXAM: Yes no CVA tenderness Back/Pelvis: COMMON NORMALS: no CVA tenderness Extremity: COMMON NORMALS: normal to inspection Neuro: COMMON NORMALS: patient oriented x3 SENSORIUM/ORIENTATION: Yes alert GAIT: Yes Normal gait present Skin: GENERAL SKIN EXAM: dry skin Course Vital Signs: Vital signs: Vital Signs Temperature 97.9 F 12/04/22 10:25 Pulse Rate 110 H 12/04/22 11:06 Respiratory Rate 16 12/04/22 10:25 Blood Pressure 160/90 12/04/22 11:06 Pulse Oximetry 97 12/04/22 11:06 Oxygen Delivery Me thod 12/04/22 10:28 [facility] - General Adult Medical Decision Making Patient is a 22-year-old female that is currently 7 months who comes to the ED with a sore throat. She says symptoms started approximately 4 days ago. She is has nasal congestion and drainage as well. Denies any related concerns. Vitals are stable. She appears nontoxic and in no acute distress. Exam shows posterior oropharynx erythema along with erythemic tonsillar hypertrophy that is 2+. Strep was negative. Given patient's clinical presentation I diagnosing her with acute pharyngitis and sending her home with a prescription for amoxicillin. She was told to follow-up with her PCP in the next week for reevaluation. Return to ED precautions given. Patient understood and agreed with plan Lab Data I reviewed the patient's lab results. Laboratory Results Group A Strep Rapid Negative (Negative) 12/04/22 10:35 Discharge Plan Discharge Patient Disposition: Home Clinical Impression: Acute pharyngitis Qualifiers: Pharyngitis/tonsillitis etiology: unspecified etiology Qualified Code(s): J02.9 - Acute pharyngitis, unspecified Condition: Stable Prescriptions: New amoxicillin 500 mg capsule 500 mg PO BID 10 Days Qty: 20 0RF No Action Probiotic 1 cap PO DAILY Discharge Orders: Discharge ED (Routine); Ordered 12/04/22 Ordered By: Yaw Hines Referrals: Zac Shukla FNP-C [Primary Care Provider] - Discharge Diet: Regular Discharge Activity: Increase activity as tolerated Patient Instructions: Pharyngitis (ED) Activity Restrictions/Additional Instructions: Follow-up with medical provider as directed in the next 3 to 5 days for reevaluation. Take medications as prescribed. Return to the ER or your medical provider if condition worsens. Please read and understand discharge instructions. Thank you for choosing [facility] for your healthcare needs today. Please realize this is an emergency room and that we are providing you with a medical screening exam and this may not be complete and all inclusive of all the testing and or work up that you may need to determine your ailment or severity of your illness. It is very important that you follow up as instructed or that you return to the Emergency Department should you have concerns or if your condition changes or worsens in any way. Coding Level of Care Code ED Fibrous Plasterer for Aubrey Mcdaniels Exam Comprehensive
[2022-12-04 11:03] LABS: Rapid Strep A Test Negative (Negative)
[2022-12-04 11:06] VITALS: BP 160/90; PULSE 110; O2SAT 97
== END 2022-12-04 11:07 | disposition home or self-care (01) ==
PROVIDERS: Emergency Provider Physician Assistant; PCP Nurse Practitioner
DX: J02.9 Acute pharyngitis, unspecified (principal); Z87.891 Personal history of nicotine dependence
CPT/HCPCS: 87081; 87880; 99283

== ENCOUNTER 2022-12-29 11:00 | Outpatient (CLI) | payer MEDICAID, SELFPAY ==
[2022-12-29 11:00] VITALS: BMI 55.0
[2022-12-29 11:11] VITALS: RESP 16
[2022-12-29 12:00] LABS: Bilirubin Urine Neg (Negative); Blood Urine Neg (Negative); Glucose Urine UA Norm (Normal); Ketones Urine Negative (Negative); Leukocyte Esterase Urine Negative (Negative); Nitrate Urine Negative (Negative); Protein Urine Neg (Negative); Urine Appearance Hazy (CLEAR); Urine Color Yellow (Yellow); Urobilinogen Urine Norm (Negative); pH Urine 6 (5-7)
[2022-12-29 12:01] LABS: Squamous Epithelial Cell Urine 15-25 /hpf (0-5)
[2022-12-29 12:02] LABS: Bacteria Urine 2+ /hpf; Mucus Urine 1+ /hpf
[2022-12-29 12:03] LABS: Add Urine Culture? No
[2022-12-29 12:36] VITALS: RESP 16
== END 2022-12-29 12:37 | disposition home or self-care (01) ==
LOC: OPOB 11:07 → OBGYN 11:08
PROVIDERS: PCP Nurse Practitioner; Visit Provider Family Medicine
DX: O26.899 Other specified pregnancy related conditions, unspecified trimester (principal); Z3A.00 Weeks of gestation of pregnancy not specified; R10.9 Unspecified abdominal pain; R10.2 Pelvic and perineal pain
CPT/HCPCS: 59025; 81001; 83986; 99211

== ENCOUNTER 2023-01-25 22:33 | Outpatient (CLI) | payer MEDICAID, SELFPAY ==
[2023-01-25 22:41] VITALS: BP 159/74; PULSE 115; O2SAT 97
[2023-01-25 22:55] VITALS: TEMP 36
[2023-01-25 23:02] VITALS: BP 136/76; PULSE 101
[2023-01-25 23:18] VITALS: BP 133/70; PULSE 96
[2023-01-25 23:25] VITALS: RESP 18; TEMP 36.6
[2023-01-25] MEDS: docusate sodium 100 mg Capsule PO (23:37)
== END 2023-01-25 23:41 | disposition home or self-care (01) ==
LOC: OPOB 22:34 → OBGYN 22:34
PROVIDERS: PCP Nurse Practitioner; Visit Provider Family Medicine
DX: O26.899 Other specified pregnancy related conditions, unspecified trimester (principal); Z3A.00 Weeks of gestation of pregnancy not specified; R10.2 Pelvic and perineal pain
CPT/HCPCS: 59025; 99211

== ENCOUNTER 2023-02-06 11:47 | Outpatient (CLI) | payer MEDICAID, SELFPAY ==
[2023-02-06 11:59] VITALS: BP 147/77; PULSE 112; RESP 18
[2023-02-06 12:16] VITALS: BP 139/72; PULSE 100
[2023-02-06 12:31] VITALS: BP 132/68; PULSE 89; BMI 53.2
[2023-02-06 12:45] LABS: Basophils % 0.3 %; Eosinophils # 0.1 10^3/uL (0.0-0.8); Eosinophils % 0.4 %; Hematocrit 38.2 % (37.0-47.0); Hemoglobin 12.2 g/dL (11.5-15.3); Lymphocytes # 2.3 10^3/uL (0.8-4.8); Lymphocytes % 16.4 %; Mean Corpuscular HGB Conc 31.9 g/dL (30.0-36.0); Mean Corpuscular Hemoglobin 28.5 pg (28.0-34.0); Mean Corpuscular Volume 89.3 fl (81-99); Mean Platelet Volume 10.9 fL (7.4-10.4); Monocytes # 0.9 10^3/uL (0.2-0.9); Monocytes % 6.6 %; Neutrophils # 10.54 10^3/uL (1.8-7.7); Neutrophils % 74.6 %; Nucleated Red Blood Cells % 0 %; Platelet Count 318 10^3/cmm (130-400); Red Blood Count 4.28 10^6/uL (4.1-5.3); Red Cell Distribution Width 13.7 % (12.1-15.1); White Blood Count 14.1 10^3/uL (4.0-10.0)
[2023-02-06 12:46] VITALS: BP 133/72; PULSE 87
[2023-02-06 13:00] LABS: Alanine Aminotransferase 13 U/L (0-33); Albumin Level 2.9 g/dL (3.5-5.2); Alkaline Phosphatase 125 U/L (35-105); Aspartate Amino Transferase 13 U/L (0-32); Blood Urea Nitrogen 8 mg/dL (6-20); Calcium 8.7 mg/dL (8.5-10.5); Carbon Dioxide 22 mmol/L (22-29); Chloride 101 mmol/L (98-107); Globulin 3.3 g/dL (1.3-4.6); Glomerular Filtration Rate 151.6 mL/min (90-130); Glucose 95 mg/dL (65-115); Osmolality Calculated 270 mOsm/kg (285-295); Sodium 131 mmol/L (136-145); Total Bilirubin 0.2 mg/dL (0.15-1.2); Total Protein 6.2 g/dL (6.6-8.7); Uric Acid 4.8 mg/dL (2.4-5.7)
[2023-02-06 13:05] VITALS: BP 138/73; PULSE 96
[2023-02-06 13:07] LABS: Bilirubin Urine Neg (Negative); Blood Urine Neg (Negative); Glucose Urine UA Norm (Normal); Ketones Urine Negative (Negative); Nitrate Urine Negative (Negative); Protein Urine Neg (Negative); Urine Appearance Cloudy (CLEAR); Urine Color Yellow (Yellow); Urine Creatinine 101 mg/dL (28-217); Urine Protein Random 11 mg/dL; pH Urine 7 (5-7)
[2023-02-06 13:08] LABS: Add Urine Culture? No; Add Urine Microscopic? YES; Bacteria Urine 2+ /hpf; Leukocyte Esterase Urine Negative (Negative); RBC Urine 0-4 /hpf (0-2); Squamous Epithelial Cell Urine TOO NUMEROUS TO CNT /hpf (0-5); Urobilinogen Urine Norm (Negative); WBC Urine 0-4 /hpf (0-5)
[2023-02-06 13:10] LABS: UPRO/UCREAT Ratio 0.11 mg/mg CR
[2023-02-06 13:16] VITALS: BP 149/74; PULSE 96
== END 2023-02-06 13:30 | disposition home or self-care (01) ==
LOC: OPOB 11:51 → OBGYN 12:01
PROVIDERS: PCP Nurse Practitioner; Visit Provider Family Medicine
DX: O16.9 Unspecified maternal hypertension, unspecified trimester (principal); Z3A.00 Weeks of gestation of pregnancy not specified
CPT/HCPCS: 36415; 59025; 80053; 81001; 82570; 84156; 84550; 85025; 99211

== ENCOUNTER 2023-02-21 06:46 | Inpatient (IN) | payer MEDICAID, SELFPAY ==
[2023-02-21] VITALS (29 sets, daily range): BP systolic 110–171; BP diastolic 57–96; PULSE 80–122; RESP 15–16; TEMP 36.1–36.7; O2SAT 96–100; BMI 59.9
[2023-02-21 08:14] LABS: Basophils % 0.2 %; Eosinophils # 0.1 10^3/uL (0.0-0.8); Eosinophils % 0.5 %; Hematocrit 39.1 % (37.0-47.0); Hemoglobin 12.6 g/dL (11.5-15.3); Lymphocytes # 2.3 10^3/uL (0.8-4.8); Lymphocytes % 17.8 %; Mean Corpuscular HGB Conc 32.2 g/dL (30.0-36.0); Mean Corpuscular Hemoglobin 28.6 pg (28.0-34.0); Mean Corpuscular Volume 88.9 fl (81-99); Mean Platelet Volume 11.2 fL (7.4-10.4); Monocytes # 0.9 10^3/uL (0.2-0.9); Monocytes % 7.1 %; Neutrophils # 9.48 10^3/uL (1.8-7.7); Neutrophils % 72.9 %; Nucleated Red Blood Cells % 0 %; Platelet Count 298 10^3/cmm (130-400)
[2023-02-21] MEDS: miSOPROStol 100 mcg tablet 25 MCG VAGINAL ×2 (09:01→14:00)
--- NOTE | 2023-02-21 16:21 | P.PN_ITS ---
Subjective Subjective: This is a 22-year-old G1, P0 at 39 weeks 6days gestation who is here for an induction. At her office visit yesterday she was diagnosed with - induced hypertension with blood pressure 140/90. Her cervix is not very favorable and after the first dose of Cytotec was still closed. Vitals/I&O/Wt Last Vital Signs Temp 97.3 F L 02/21/23 08:40 Pulse 102 H 02/21/23 16:17 Resp 16 02/21/23 08:03 BP 171/96 02/21/23 16:17 Pulse Ox 100 02/21/23 09:28 O2 Del Method Room Air 02/21/23 08:03 Weight last 48 hrs Weight 163.293 kg Physical Exam Narrative: Alert and oriented alert and oriented, sitting up on birthing ball, no acute distress, abdomen is nontender, extremities have 3+ edema. Data 02/21/23 07:20 A&P Assessment and plan (1) with 39 completed weeks gestation: Induction under underway using Cytotec. I will likely let her eat if she is not in active labor after the second dose. We will then start her on Pitocin. (2) induced hypertension, antepartum: Her most recent blood pressure is the first 1 that was significantly elevated. Nursing is going to repeat her blood pressure. We will initiate hypertensive protocol. (3) Morbid obesity with BMI of 50.0-59.9, adult: It has been challenging to get a continuous strip on the heart tones - due to her morbid oesity FHT are very distant. Nursing has had to resort to holding the monitor the entire time. This is going to be very complicated when we need to change her over to Pitocin. Attestations Medical Necessity Statement*: expectant management of labor and delivery Coding Level of Care Code Acute Code for Chg Fwd Diagnoses with 39 completed weeks gestation Z3A.39 induced hypertension, antepartum O13.9 Morbid obesity with BMI of 50.0-59.9, adult E66.01; Z68.43
--- NOTE | 2023-02-21 16:45 | USR_ITS ---
PROCEDURE INFORMATION: Exam: US ; Follow up Exam date and time: 02/21/2023 6:23 PM Age: 22 years old Clinical indication: Lmp or gestational age (in weeks): [id number]; Labor and delivery abnormalities; Post-term (over 40 weeks to 42 weeks gestation); ; Additional info: Morbid obesity impairing nst monitoring. , Efw and fluid due to morbid obesity and lack of dilation LABS AND CLINICAL REPORTS: Last menstrual period start date: 05/18/2022 Gestational age (Established): 39 w 6 d Estimated due date (Established): 02/22/2023 TECHNIQUE: Imaging protocol: Transabdominal ultrasound of the uterus, real time with image documentation. Follow-up (eg, re-evaluation of size by measuring standard growth parameters and amniotic fluid volume, re-evaluation of organ system(s) suspected or confirmed to be abnormal on a previous scan). COMPARISON: US OB >= 14 weeks fetus [id number] 10/15/2022 3:39 PM FINDINGS: Gestation: Intrauterine gestation. heart rate: 147 bpm presentation: Cephalic Placenta: Anterior grade 3 placenta without previa. Amniotic fluid: Amniotic fluid volume is low, consistent with oligohydramnios. Amniotic fluid index: SHIREEN is 3.6 cm. BIOMETRY: Gestational age (AUA): 40 w 3 d Estimated due date (AUA): 02/18/2023 Estimated weight: 4127 g. [id number]-Bhupinder. >90% percentile Biparietal diameter (BPD): 10.3 cm Head circumference (HC): 34.6 cm. EGA (HC) is 40 w 0 d Abdominal circumference (AC): 35.7 cm. EGA (AC) is 39 w 4 d Femur length (FL): 8.2 cm. EGA (FL) is 41 w 5 d Cephalic Index (CI): 93.8 % HC/AC: 0.97 FL/HC: 23.6 % FL/AC: 22.8 % US/US OB F/U w BPP wo NST IMPRESSION: 1. Single live intrauterine gestation with good cardiac activity. Calculated gestational age 40 weeks 3 days. There is cephalic presentation. Cervix is closed. 2. Oligohydramnios.
[2023-02-21] MEDS: famotidine 20 mg/2 mL INJ IVP (19:26)
[2023-02-21] MEDS: lactated ringers 1,000 ML 999 ML IV (19:26)
[2023-02-21] MEDS: citric acid-sodium citrate 30 mL UDC PO (19:26)
[2023-02-21] MEDS: metoclopramide 5 mg/mL SDV 2 mL 10 MG IVP (19:26)
--- NOTE | 2023-02-21 21:50 | PM.OP ---
Operative Report Date of procedure: February 21, 2023 Pre-op diagnosis: IUP at 39 weeks 6 days gestation Failure to dilate 4 out of 8 biophysical profile Oligohydramnios Morbid obesity Post-op diagnosis: Same Procedure done: Primary low transverse section Via Pfannenstiel skin incision Specimens removed/disposition: Vertex male weight Surgeon: Nara Thacker MD Estimated blood loss (mL): 450 IV fluids (mL): 1,000 Urine output (mL): 50 Complications: None Brief History: This is a 22-year-old G1, P0 at 39 weeks 6 days gestation who was admitted for an induction. Her cervix was closed so she was given Cytotec x2. Due to her morbid obesity, monitoring required a nurse to manually obtain heart tones. Even then the strip was very broken and the presence of accelerations and lack of decelerations was only audible. After her second dose of Cytotec she was still closed and very high. Ultrasound was obtained for biophysical profile and weight and fluid. Biophysical profile resulted in a 4 out of 8. SHIREEN was 3.9. Decision was made to proceed with section out of concern for wellbeing and inability to continuously monitor heart tones due to morbid obesity. Procedure: After informed consent the patient was taken to the OR where spinal anesthesia was administered. She was prepped and draped in normal sterile fashion in dorsal supine position with a left lateral tilt. A Pfannenstiel skin incision was made and carried through to the underlying layer of fascia sharply. The fascia was grasped with Lennox clamps and the underlying rectus muscles were dissected off taking care to avoid injury to the underlying tissues. The peritoneum was then entered bluntly using a hemostat. The peritoneal incision was then manually stretched. The bladder blade was inserted and the vesicouterine peritoneum was identified. The vesicouterine peritoneum was entered sharply using the Metzenbaums and the bladder flap was created digitally. The bladder blade was then reinserted. Uterine incision was made in a transverse fashion in the lower uterine segment. The placenta was visible bulging from the incision site so I inserted my hand and manually ruptured membranes while simultaneously positioning the head. The 's head and body was delivered atraumatically with bulb suction of the mouth and nares after delivery. The cord was clamped and cut and the infant was handed to the waiting pediatric team. Cord blood was obtained. The placenta was delivered grossly intact using fundal pressure. The uterus was then exteriorized from the abdomen. A dry sponge was used to clear the uterus of clots and debris. The uterine incision was then repaired using 0 chromic in a running locked fashion. A second layer of the same suture was used in an imbricating manner. There was a extension on the right aspect of the incision but this was followed all the way to the apex. The uterus was then returned to the abdomen and irrigation was used to clear the gutters of clots and debris. The uterine incision was reinspected for hemostasis and there were a few small bleeders that were coagulated using Bovie. After hemostasis was verified the peritoneum was then reapproximated using 4-0 Vicryl. The subfascial tissue was inspected for hemostasis and the fascia was then reapproximated using 0 Vicryl in a running fashion. The subcutaneous tissue was irrigated and any small bleeders were coagulated using the Bovie. The subcutaneous tissue was then reapproximated using 4-0 Vicryl in a running fashion. The skin was then reapproximated using 4-0 Vicryl on a Lm needle. Steri-Strips and a pressure bandage were applied and patient went to recovery in good condition.
--- NOTE | 2023-02-21 21:56 | ANES.PAUD2 ---
Pre-Anesthetic Update Pre-Anesthetic Assessment: Date of Surgery/Procedure: 02/21/23 Proposed Procedure: C/S Any changes to Pre-Anesthetic Assessment?: Yes Changes from Pre-Anesthetic Assessment: Poor BPP Labs Last 48hrs: Short CBC 02/21/23 Range/Units 07:20 WBC 13.0 H (4.0-10.0) 10^3/ uL Hgb 12.6 (11.5-15.3) g/dL Hct 39.1 (37.0-47.0) % MCV 88.9 (81-99) fl Plt Count 298 (130-400) 10^3/c mm Neut % (Auto) 72.9 % Neut # (Auto) 9.48 H (1.8-7.7) 10^3/u L Vitals: Temperature 97.0 F L 02/21/23 17:27 Temperature Source Temporal Artery S can 02/21/23 08:03 Pulse Rate 95 02/21/23 20:03 Respiratory Rate 16 02/21/23 08:03 Respiratory Effort Spontaneous, Non- Labored 02/21/23 07:50 Respiratory Depth Normal 02/21/23 07:50 Respiratory Patter n Normal 02/21/23 08:07 Blood Pressure 137/77 02/21/23 19:59 Blood Pressure Sanam n 105 02/21/23 08:03 Blood Pressure Pos ition Semi Fowlers 02/21/23 08:03 Pulse Oximetry 100 02/21/23 20:03 Oxygen Delivery Me thod Room Air 02/21/23 08:03 Exam: Pre-Anes Outpt Exam: alert, oriented x 3, clear to auscultation bilaterally and regular rate & rhythm Additional Exam Findings (including area of procedure): Plan SAB Cardiac Studies: No Data to Display
--- NOTE | 2023-02-21 21:57 | ANE.PACU2 ---
Inpatient post-anesthesia follow up: Airway intact: Yes Vital signs: Temperature 97.0 F Pulse Rate 95 Respiratory Rate 16 Blood Pressure 137/77 Pulse Oximetry 100 Oxygen Delivery Me thod Room Air Oxygen Flow Rate Fraction of Inspir ed Oxygen Hydration adequate: Yes Nausea and vomiting: No Pain level: 2 Mental status: Baseline
[2023-02-21] MEDS: ketorolac 30 mg/mL INJ IVP (23:54)
[2023-02-22] VITALS (66 sets, daily range): BP systolic 96–148; BP diastolic 44–87; PULSE 79–193; RESP 18; TEMP 36.9; O2SAT 96–100
[2023-02-22] MEDS: diphenhydrAMINE 50 mg/mL SDV 1mL 25 MG IVP (00:21)
[2023-02-22] MEDS: dextrose 5%-lactated ringers 1,000 ML 125 ML IV ×2 (02:52→11:56)
[2023-02-22] MEDS: sodium chloride 0.9% 500 ML 999 ML IV (03:02)
[2023-02-22] MEDS: ketorolac 30 mg/mL INJ IVP ×2 (05:59→13:05)
[2023-02-22] MEDS: prenatal vitamin Capsule 1 CAP PO (09:22)
[2023-02-22] MEDS: docusate sodium 100 mg Capsule PO ×2 (09:22→21:54)
[2023-02-22 09:56] LABS: Hematocrit 35.3 % (37.0-47.0); Hemoglobin 11.3 g/dL (11.5-15.3); Mean Corpuscular Volume 90.5 fl (81-99); Mean Platelet Volume 11.5 fL (7.4-10.4); Platelet Count 284 10^3/cmm (130-400); Red Cell Distribution Width 14.3 % (12.1-15.1); White Blood Count 17.7 10^3/uL (4.0-10.0)
[2023-02-22] MEDS: FUROsemide 10 mg/mL SDV 2mL 20 MG IVP (10:10)
--- NOTE | 2023-02-22 16:00 | PM.PN ---
Subjective Subjective: She had decreased urine output and was given 1 dose of Lasix 20 mg this morning. After that she did have improved output but still not as what to be expected. She has been ambulating. Vitals/I&O/Wt Last Vital Signs Temp 98.5 F 02/22/23 02:44 Pulse 84 02/22/23 13:45 Resp 18 02/22/23 13:54 BP 134/73 02/22/23 13:45 Pulse Ox 100 02/22/23 05:17 O2 Del Method Room Air 02/21/23 22:15 02/22/23 02/22/23 02/22/23 06:59 14:59 22:59 Intake Total 1500 / 1740 3000 / 3000 Output Total 790 / 840 688 / 688 Balance 710 / 900 2312 / 2312 Weight last 48 hrs Weight 163.293 kg Physical Exam Narrative: Alert and oriented standing up in the room, heart regular rate and rhythm, lungs clear to auscultation bilaterally, abdomen is soft with appropriate postoperative tenderness, dressing is clean dry and intact, extremities have 3+ edema Urinary Catheter Management: [place]: Cath Placed During This Visit: yes Reason for Continuing Indwelling Catheter: Accurate Measurement of Urinary Output in Critically Ill Patients Urinary Catheter Date of Insertion: 02/21/23 Urinary Catheter Time of Insertion: 20:50 Data 02/22/23 09:30 A&P Assessment and plan (1) Status post primary low transverse section: I am going to keep the catheter in for now since we are expecting her to diurese significantly. I am not sure how well we would be able to monitor her output using a hat. Continue routine postoperative care (2) Morbid obesity with BMI of 50.0-59.9, adult: Nursing has had to help the patient with PeriCare Attestations Medical Necessity Statement*: Routine postoperative and care Coding Level of Care Code Acute Code for Chg Fwd Diagnoses Status post primary low transverse section Z98.891 Morbid obesity with BMI of 50.0-59.9, adult E66.01; Z68.43
[2023-02-22] MEDS: HYDROcodone-acetaminophen 5-325 mg Tablet PO ×2 (16:14→20:52)
--- NOTE | 2023-02-22 18:24 | PC.NURSE ---
Patient has been unable to perform connie care on herself this shift. Patient reports that when she is at home she typically will just spray off in the shower after using the restroom and since she is not allowed to shower yet she has been unable to do that here. Patient reports once she showers this evening then she will be able to perform connie care on herself with shower head after using the restroom.
[2023-02-22] MEDS: ibuprofen 800 mg tablet PO (21:54)
[2023-02-23] MEDS: HYDROcodone-acetaminophen 5-325 mg Tablet PO ×2 (03:14→13:35)
[2023-02-23 04:09] VITALS: BP 127/66; PULSE 100
[2023-02-23] MEDS: docusate sodium 100 mg Capsule PO (08:04)
[2023-02-23] MEDS: prenatal vitamin Capsule 1 CAP PO (08:04)
[2023-02-23] MEDS: ibuprofen 800 mg tablet PO (08:04)
[2023-02-23 08:07] VITALS: BP 134/84; PULSE 106
--- NOTE | 2023-02-23 12:00 | PM.DCS ---
Discharge Providers Date of Admission: 02/21/23 06:46 Date of Discharge: February 23, 2023 Attending Provider at Admission: Nara Thacker MD Attending Provider at Discharge: Nara Thacker MD Primary Care Provider: CHAPINCITO Guy Diagnoses at Discharge Discharge Diagnosis (1) Status post primary low transverse section: Status: Acute (2) Morbid obesity with BMI of 50.0-59.9, adult: Status: Acute Reason for Visit Reason for Visit: induction Hospital Course Hospital Course This is a 22-year-old G1 now P1 who was admitted at 39 weeks 6 days for induction. She did have some elevated blood pressures mostly 140s over 90s but did not require antihypertensives. After 2 doses of Cytotec her cervix was still closed. Due to morbid obesity heart tone monitoring was extremely difficult and required audible interpretation even with holding the monitor in place. Biophysical profile was obtained and was 4 out of 8. At this point decision was made to go ahead and proceed with primary section. The patient did well and there were no complications of the procedure. Postoperatively she was ambulating, tolerating a regular diet, had good pain control and was comfortable with discharge home. Her highest blood pressure in the last 24 hours was 148/87. She still has not required any antihypertensives. Physical Exam Narrative: Alert and oriented, sitting in bedside chair, heart regular rate and rhythm, lungs clear to auscultation bilaterally, abdomen is soft with appropriate postoperative tenderness, incision is clean and intact, Steri-Strips are somewhat moist, extremities have 3+ edema but no calf tenderness Urinary Catheter Management: [place]: Cath Placed During This Visit: yes, but has since been removed by the nurse Reason for Continuing Indwelling Catheter: Decision to DC Catheter Urinary Catheter Date of Insertion: 02/21/23 Urinary Catheter Time of Insertion: 20:50 Date Urinary Catheter Removed: 02/22/23 Time Urinary Catheter Discontinued: 18:00 Discharge Data Studies Completed and Pending Completed Studies During Hospitalization Category Date Time Status US OB F/U w BPP wo NST Routine Ultrasound 02/21/23 16:45 Completed Radiology Impressions Obstetrics Ultrasound 02/21/23 16:45 IMPRESSION: 1. Single live intrauterine gestation with good cardiac activity. Calculated gestational age 40 weeks 3 days. There is cephalic presentation. Cervix is closed. 2. Oligohydramnios. Laboratory Results WBC 17.7 10^3/uL (4.0-10.0) H 02/22/23 09:30 RBC 3.90 10^6/uL (4.1-5.3) L 02/22/23 09:30 Hgb 11.3 g/dL (11.5-15.3) L 02/22/23 09:30 Hct 35.3 % (37.0-47.0) L 02/22/23 09:30 MCV 90.5 fl (81-99) 02/22/23 09:30 MCH 29.0 pg (28.0-34.0) 02/22/23 09:30 MCHC 32.0 g/dL (30.0-36.0) 02/22/23 09:30 RDW 14.3 % (12.1-15.1) 02/22/23 09:30 Plt Count 284 10^3/cmm (130-400) 02/22/23 09:30 MPV 11.5 fL (7.4-10.4) H 02/22/23 09:30 Neut % (Auto) 72.9 % 02/21/23 07:20 Lymph % (Auto) 17.8 % 02/21/23 07:20 [place] % (Auto) 7.1 % 02/21/23 07:20 Eos % (Auto) 0.5 % 02/21/23 07:20 Baso % (Auto) 0.2 % 02/21/23 07:20 Neut # (Auto) 9.48 10^3/uL (1.8-7.7) H 02/21/23 07:20 Lymph # (Auto) 2.3 10^3/uL (0.8-4.8) 02/21/23 07:20 [place] # (Auto) 0.9 10^3/uL (0.2-0.9) 02/21/23 07:20 Eos # (Auto) 0.1 10^3/uL (0.0-0.8) 02/21/23 07:20 Baso # (Auto) 0.0 10^3/uL (0.0-0.1) 02/21/23 07:20 Nucleated RBC % (auto) 0 % 02/21/23 07:20 Nucleated RBCs # 0.0 /100WBC 02/21/23 07:20 Vitals Last Vital Signs Temp 98.4 F 02/22/23 18:16 Pulse 106 H 02/23/23 08:07 Resp 18 02/22/23 18:16 BP 134/84 02/23/23 08:07 Pulse Ox 100 02/22/23 05:17 O2 Del Method Room Air 02/21/23 22:15 Discharge Plan Discharge Patient Disposition: Home Condition: Stable Prescriptions: New ibuprofen 800 mg Tablet 800 mg PO TID PRN (Reason: Abdominal Discomfort) Qty: 30 0RF hydrocodone-acetaminophen 5-325 mg Tablet 1 - 2 tab PO Q4H PRN (Reason: Moderate To Severe Pain) Qty: 12 0RF docusate sodium 100 mg Capsule 100 mg PO BID Qty: 60 0RF Continued Probiotic 1 cap PO DAILY [id number] 1 mg Tablet PO Discharge Orders: Discharge Order (Routine); Ordered 02/23/23 Ordered By: Nara Thacker Referrals: Nara Thacker MD [Physician] - 1-3 days (Wed) Discharge Diet: Usual diet Discharge Activity: Limit activity as instructed Patient Instructions: Opioid Safety Discharge Attestations Time Spent in Discharge Care*: less than 30 min Quality Metrics Clinical Quality Measures [ No reported AMI, CVA or VTE this stay] Coding Level of Care Code Acute Code for Chg Fwd Diagnoses Status post primary low transverse section Z98.891 Morbid obesity with BMI of 50.0-59.9, adult E66.01; Z68.43
[2023-02-23 14:20] VITALS: BP 181/105; PULSE 105
[2023-02-23 14:21] VITALS: PULSE 96
[2023-02-23 15:00] VITALS: BP 141/93
[2023-02-23 15:07] VITALS: BP 141/93; PULSE 111; RESP 15; TEMP 36.9
== END 2023-02-23 15:08 | disposition home or self-care (01) | DRG 788 ==
LOC: OPOB 06:47 → OBGYN 06:47
PROVIDERS: Admitting Provider Family Medicine; PCP Nurse Practitioner; Visit Provider Family Medicine
PROC: 10D00Z1 Extraction of Products of Conception, Low, Open Approach (ICD-10-PCS; CPT 59514; principal; 2023-02-21 20:20)
DX: O62.0 Primary inadequate contractions (principal); O13.4 Gestational [pregnancy-induced] hypertension without significant proteinuria, complicating childbirth; O99.214 Obesity complicating childbirth; E66.01 Morbid (severe) obesity due to excess calories; Z3A.39 39 weeks gestation of pregnancy; Z37.0 Single live birth
CPT/HCPCS: 36415; 51702; 59025; 59409; 76816; 76819; 85025; 85027; 96374; 96376; J1200; J1885; J1940; J2274; J2370; J2590; J2765; J3490; J7030; J7040; J7120; J7121

== ENCOUNTER 2023-04-13 20:42 | Emergency (ER) | payer MEDICAID, SELFPAY ==
[2023-04-13 21:09] VITALS: BP 133/86; PULSE 92; RESP 14; TEMP 36.6; O2SAT 96; BMI 49.1
--- NOTE | 2023-04-13 21:55 | ED_ITS ---
HPI - Wound/Laceration General: Chief Complaint: Wound/Laceration Stated Complaint: abd pain from c section Time Seen by Provider: 04/13/23 21:24 Source: patient and family Mode of arrival: ambulatory Limitations: no limitations History of Present Illness: Patient presents to the emergency department today for evaluation treatment of pelvic and vaginal pressure. Patient is approximately 6 weeks from a scheduled delivery. Patient was not able to progress vaginally so they did perform a . Patient admits that she has accelerated her return to ambulation and driving sooner than she was supposed to. She did not keep her 6- week follow-up appointment. Patient denies issues with her scar but, has developed some wounds on her pannus over the last couple of weeks. Patient has not had any return of vaginal bleeding. She denies dysuria. She indicates most of her pain occurs when she stands up. She has not had fever, vomiting, or back pain. Review of Systems General: Reports: 10 or more systems reviewed and unremarkable except in HPI and below PFSH ED PFSH: Medical History Acid reflux IBS (irritable bowel syndrome) Obesity, morbid, BMI 40.0-49.9 Surgical History Hx of cholecystectomy 2019 Family History Other Cancer Chronic kidney disease (CKD) Diabetes Hypertension Denies family history of Dementia Stroke Social History Smoking and tobacco status: former smoker Second hand smoke exposure: No Smoking risk assessment/counseling performed?: No Alcohol intake: current Alcohol intake frequency: holidays/special occasions only Desire information about alcohol rehabilitation?: No Counseling given: No Substance/Drug Use: never Desire information about substance/drug rehabilitation?: No Counseling given: No Adopted: No Caregiver/support person: No Lives independently: Yes Household members: significant other Housing: House Marital status: Single Number of children: 0 service: No Current occupational status: employed Current occupation: [employer] Sexually active: Yes Do you think of yourself as: Straight/Heterosexual Current gender identity: Female Female Reproductive History: Para: 0 Physical Exam Const: COMMON NORMALS: no acute distress, patient oriented x3 and alert HENMT: COMMON NORMALS: normocephalic, atraumatic, hearing grossly normal bilaterally and moist oral mucous membranes HEAD & SCALP: normocephalic and atraumatic Eye: COMMON NORMALS: Equal, round and reactive pupils present, EOMs intact bilaterally and conjunctivae normal CONJUNCTIVA: Yes conjunctivae normal PUPIL: Yes Equal, round and reactive pupils present Neck/C-Spine: COMMON NORMALS: full ROM and no JVD Lymph: LYMPHATIC: no lymphadenopathy noted Resp: COMMON NORMALS: normal respiratory effort, No retractions, No use of accessory muscles and clear to auscultation bilaterally AUSCULTATION: clear to auscultation bilaterally Cardio: COMMON NORMALS: no JVD, regular rate and regular rhythm RATE: regular rate RHYTHM: regular rhythm GI: COMMON NORMALS: Normal to inspection, nondistended, normoactive bowel sounds present, Soft to palpation and non-tender PALPATION: Yes Soft to palpation : COMMON NORMALS: Yes no CVA tenderness BLADDER/KIDNEY EXAM: Yes no CVA tenderness Back/Pelvis: COMMON NORMALS: no CVA tenderness, no thoracic nor lumbar tenderness and thoraco-lumbar ROM normal Extremity: COMMON NORMALS: normal to inspection, full ROM and capillary refill normal Neuro: COMMON NORMALS: patient oriented x3 SENSORIUM/ORIENTATION: Yes alert Psych: COMMON NORMALS: mental status grossly normal, Normal thought process p resent, cooperative, normal affect and activity/motor behavior normal THOUGHT PROCESS: Normal thought process present Skin: NARRATIVE SKIN EXAM: Patient has a well-healing low abdominal surgical scar. No signs of erythema or wound dehiscence. No swelling or draining at the wound site. Patient has 2 nickel sized wounds on her pannus fold without active bleeding but, mild signs of superficial infection. Course Vital Signs: Vital signs: Vital Signs Temperature 97.9 F 04/13/23 21:09 Pulse Rate 88 04/14/23 00:54 Respiratory Rate 20 H 04/14/23 00:54 Blood Pressure 128/84 04/14/23 00:54 Pulse Oximetry 98 04/14/23 00:54 Oxygen Delivery Me thod Room Air 04/13/23 21:09 MDM - Wound/Laceration Medical Decision Making Patient presents to the emergency department today for evaluation treatment of pelvic pain. She is 6 weeks and did not keep her follow-up appointment with [facility]. Patient is not having any vaginal bleeding. Her C- section scar is well-healed without signs of cellulitis. Patient's vital signs are stable. Urinalysis is clear for any signs of infection. Ultrasound was unremarkable without any acute concerns for retained products or postoperative complication. Given these negative findings and, with the description of the patient's pain described as discomfort and heaviness in the vagina-especially worse while standing, patient may have developed pelvic congestion syndrome. We did discuss this condition and would encourage her to discuss it with her [facility] THE[facility] ACTOR. I did tell her about some concerning symptoms for which she needs to be seen and reevaluated. Patient verbalized understanding. Differential Diagnosis Likely abscess (Retained products, UTI, yeast, pelvic congestion) Lab Data Radiology Impressions Pelvic/Transvag US 04/13/23 22:42 IMPRESSION: 1. Small amount of nonspecific fluid in the pelvis 2. Uterus appears within normal limits. 3. Right ovary appears within normal limits with color blood flow. 4. Left ovary not visualized. Laboratory Results Urine Color Yellow (Yellow) 04/13/23 22:00 Urine Appearance Hazy (CLEAR) A 04/13/23 22:00 Urine pH 5 (5-7) 04/13/23 22:00 Ur Specific [place] 1.015 (1.005-1.030) 04/13/23 22:00 Urine Protein Neg (Negative) 04/13/23 22:00 Urine Glucose (UA) Norm (Normal) 04/13/23 22:00 Urine Ketones Negative (Negative) 04/13/23 22:00 Urine Blood Neg (Negative) 04/13/23 22:00 Urine Nitrate Negative (Negative) 04/13/23 22:00 Urine Bilirubin Neg (Negative) 04/13/23 22:00 Urine Urobilinogen Norm mg/dL (Negative) 04/13/23 22:00 Ur Leukocyte Esterase Negative (Negative) 04/13/23 22:00 Discharge Plan Discharge Patient Disposition: Home Clinical Impression: Vaginal pain Condition: Stable Prescriptions: No Action Probiotic 1 cap PO DAILY [id number] 1 mg Tablet PO ibuprofen 800 mg Tablet 800 mg PO TID PRN (Reason: Abdominal Discomfort) Qty: 30 0RF hydrocodone-acetaminophen 5-325 mg Tablet 1 - 2 tab PO Q4H PRN (Reason: Moderate To Severe Pain) Qty: 12 0RF docusate sodium 100 mg Capsule 100 mg PO BID Qty: 60 0RF Discharge Orders: Discharge ED (Routine); Ordered 04/14/23 Ordered By: Tracy Whitehead Referrals: Zac Shukla, STAFF RN-C [Primary Care Provider] - Discharge Diet: Usual diet Discharge Activity: Increase activity as tolerated Activity Restrictions/Additional Instructions: You show no signs of any infection in your urine today. Ultrasound revealed no acute concerns regarding any type of complications. Based on these negative findings and the description/location of your discomfort I am suspicious that you may have developed pelvic congestion. This is an increase in blood retention in the pelvic floor and vaginal region. Think of it like varicose veins from your legs but in the vaginal region. This causes heaviness and pain-especially towards the end of the day and, with prolonged standing. I do recommend getting into see an [facility] THE[facility] ACT[facility] to continue to have follow-up and, to discuss any continued vaginal discomfort you may be experiencing. Coding Level of Care Code ED Body Wirer for Aubrey Mcdaniels
[2023-04-13 22:16] LABS: Add Urine Microscopic? NO; Charge for UA Resulting for Rev
[2023-04-13 22:26] LABS: Blood Urine Neg (Negative); Glucose Urine UA Norm (Normal); Ketones Urine Negative (Negative); Nitrate Urine Negative (Negative); Protein Urine Neg (Negative); Specific Gravity, Urine 1.015 (1.005-1.030); Urine Appearance Hazy (CLEAR); Urine Color Yellow (Yellow); pH Urine 5 (5-7)
[2023-04-13 22:27] LABS: Bilirubin Urine Neg (Negative); Leukocyte Esterase Urine Negative (Negative); Urobilinogen Urine Norm (Negative)
--- NOTE | 2023-04-13 22:42 | USR_ITS ---
PROCEDURE INFORMATION: Exam: US Pelvis Limited, Transabdominal and US Pelvis, Transvaginal Exam date and time: 04/13/2023 11:03 PM Age: 22 years old Clinical indication: Other: Pain around c section scar; Prior surgery; Surgery date: 1-6 months; Additional info: Vaginal/pelvic pain, S/P 6 weeks post w/ delivery TECHNIQUE: Imaging protocol: Real-time transabdominal and transvaginal pelvic ultrasound (limited) with image documentation. Transvaginal imaging was used for better evaluation of the endometrium, adnexa, and/or cervix. COMPARISON: US pelv w/transvag [id number] 05/27/2018 7:00 AM FINDINGS: Uterus: Uterus is normal. Endometrial stripe is normal. Right ovary/adnexa: Ovary is normal. No mass. Normal blood flow. Left ovary/adnexa: Ovary is normal. No mass. Normal blood flow. Intraperitoneal space: Small amount of nonspecific fluid in the pelvis. US/US pelvis lmt w transvag IMPRESSION: 1. Small amount of nonspecific fluid in the pelvis 2. Uterus appears within normal limits. 3. Right ovary appears within normal limits with color blood flow. 4. Left ovary not visualized.
[2023-04-14 00:54] VITALS: BP 128/84; PULSE 88; RESP 20; O2SAT 98
== END 2023-04-14 00:56 | disposition home or self-care (01) ==
PROVIDERS: Emergency Provider Physician Assistant; PCP Nurse Practitioner
DX: R10.2 Pelvic and perineal pain (principal)
CPT/HCPCS: 76830; 76857; 81003; 99284

== ENCOUNTER → 2024-03-08 10:33 | Outpatient (BNVA) | payer SELFPAY | PROVIDERS: PCP Nurse Practitioner; Visit Provider Family Medicine | DX: R05.9 Cough, unspecified (principal); H66.91 Otitis media, unspecified, right ear; J01.90 Acute sinusitis, unspecified | CPT/HCPCS: 87400; 87426 ==

== ENCOUNTER 2024-09-27 13:51 | Emergency (ER) | payer OTHER, SELFPAY ==
[2024-09-27] VITALS (31 sets, daily range): BP systolic 112–129; BP diastolic 60–86; PULSE 60–98; RESP 16–18; TEMP 36.4; O2SAT 93–99; BMI 45.1
--- NOTE | 2024-09-27 14:41 | ED_ITS ---
HPI - Abdominal Pain 2 General: Chief Complaint: Abdominal Pain Stated Complaint: abd pain, NV Time Seen by Provider: 09/27/24 14:37 History of Present Illness: 24-year-old female with history of depre ssion and obesity who presents the emergency room with right lower quadrant abdominal pain. This started a few hours back. She has had some nausea but no vomiting. No dysuria. She has had her gallbladder out the past. Related Data Previous Rx's Medication Instructions Recorded chlorhexidine gluconate 0.12 % 15 ml buccal BID #473 mL 06/03/24 mouthwash (Peridex) venlafaxine 37.5 mg 37.5 mg PO DAILY #30 caps 06/03/24 capsule,extended release 24 hr (Effexor XR) ibuprofen 800 mg tablet 800 mg PO Q8H #15 tabs 06/21/24 cefdinir 300 mg capsule 300 mg PO BID 7 days #14 caps 09/27/24 diclofenac sodium 50 mg 50 mg PO BID PRN pain #14 tabs 09/27/24 tablet,delayed release Allergies Allergy/AdvReac Type Severity Reaction Status Date / Time No Known Allergies Allergy Verified 08/28/24 12:26 Review of Systems 2 Narrative: Constitutional symptoms: Negative except as documented in HPI. Skin symptoms: Negative except as documented in HPI. Eye symptoms: Negative except as documented in HPI. ENMT symptoms: Negative except as documented in HPI. Respiratory symptoms: Negative except as documented in HPI. Cardiovascular symptoms: Negative except as documented in HPI. Gastrointestinal symptoms: Negative except as documented in HPI. Genitourinary symptoms: Negative except as documented in HPI. Musculoskeletal symptoms: Negative except as documented in HPI. Neurologic symptoms: Negative except as documented in HPI. Psychiatric symptoms: Negative except as documented in HPI. Endocrine symptoms: Negative except as documented in HPI. PFSH ED 2 PFSH: Medical History IBS (irritable bowel syndrome) Obesity, morbid, BMI 40.0-49.9 Acid reflux Surgical History Hx of cholecystectomy 2019 Family History Other Cancer Chronic kidney disease (CKD) Diabetes Hypertension Denies family history of Dementia Stroke Social History Smoking and tobacco/nicotine status: former use of tobacco/nicotine Second hand smoke exposure: No Alcohol intake: current Alcohol intake frequency: holidays/special occasions only Substance/Drug Use: never Adopted: No Caregiver/support person: No Lives independently: Yes Household members: significant other Housing: House Marital status: Single Number of children: 1 service: No Current occupational status: employed Current occupation: [employer] Sexually active: Yes Do you think of yourself as: Straight/Heterosexual Current gender identity: Female Female Reproductive History: Para: 1 Physical Exam 2 Narrative: EXAM NARRATIVE: General: Alert, no acute distress. Skin: Warm, dry. Head: Normocephalic, atraumatic. Neck: Supple, trachea midline. Eye: Extraocular movements are intact. Ears, nose, mouth and throat: mucosa moist. Cardiovascular: Regular, Normal peripheral perfusion. Respiratory: Lungs are clear to auscultation, respirations are non-labored, breath sounds are equal, Symmetrical chest wall expansion. Gastrointestinal: Soft, moderate right lower quadrant abdominal pain, Non distended Musculoskeletal: Normal ROM, no deformity. Neurological: Alert and oriented, No focal neurological deficit observed. Psychiatric: Cooperative, appropriate mood & affect. Course 2 Vital Signs: Vital signs: Vital Signs Temperature 97.6 F 09/27/24 14:31 Pulse Rate 60 09/27/24 15:55 Respiratory Rate 18 09/27/24 15:55 Blood Pressure 121/78 09/27/24 18:30 Pulse Oximetry 96 09/27/24 18:30 Oxygen Delivery Me thod Room Air 09/27/24 15:55 MDM - Abdominal Pain Medical Decision Making Medical decision making: Differential diagnosis for this patient with right lower quadrant abdominal pain including but not limited to and based on the above HPI, review of systems and physical exam: Ureterolithiasis. Urinary tract infection. Appendicitis. colitis. small bowel obstruction. Crohn's flare. Pancreatitis. Cholelithiasis or cholecystitis. Hepatitis. Diverticulitis. Constipation. ovarian cyst. ovarian torsion Workup: Orders were placed to evaluate differential diagnosis based on the above differential, HPI and exam: Lab Review: Laboratory results were reviewed and interpreted by myself the emergency room physician. Mild leukocytosis. No anemia. No renal failure. Patient does have hematuria but this is likely secondary to menstruation. She however does have 15-25 whites which would be a significant urinary tract infection for which she is being treated. This would also explain her symptoms. CT of the abdomen pelvis shows no acute process: This was reviewed and interpreted by myself the emergency room physician. I also reviewed the radiology report. I reviewed the patient's medical record Reexamination: Patient remained stable. No increased work of breathing. No altered mental status. No focal motor deficits. Assessment and plan: Urinary tract infection ?IV Toradol, Zofran and Rocephin in the emergency room - Discharged home - Discussed findings and plan with patient. Answered any questions. - All laboratory values were reviewed and interpreted personally by myself, the ER physician - All imaging was reviewed and interpreted personally by myself, the ER physician. - Evaluation and treatment of this problem were appropriate in the emergency setting Lab Data 09/27/24 15:15 09/27/24 15:15 Labs/Radiology: Radiology Impressions Abdomen/Pelvis CT 09/27/24 16:[address]: [address] evidence of acute intra-abdominal or pelvic pathology. 2. Additional findings, as above. Laboratory Results WBC 11.93 10^3/uL (3.29-11.43) H 09/27/24 15:15 RBC 4.72 10^6/uL (3.85-5.65) 09/27/24 15:15 Hgb 12.60 g/dL (11.27-16.99) 09/27/24 15:15 Hct 39.7 % (36-47) 09/27/24 15:15 MCV 84.1 fl (85-98) L 09/27/24 15:15 MCH 26.7 pg (27-33) L 09/27/24 15:15 MCHC 31.7 g/dL (30-55) 09/27/24 15:15 RDW 13.7 % (12.1-15.1) 09/27/24 15:15 Plt Count 307 10^3/cmm (157-399) 09/27/24 15:15 MPV 10.0 fL (7.4-10.4) 09/27/24 15:15 Neut % (Auto) 74.1 % 09/27/24 15:15 Lymph % (Auto) 16.9 % 09/27/24 15:15 [place] % (Auto) 7.3 % 09/27/24 15:15 Eos % (Auto) 1.0 % 09/27/24 15:15 Baso % (Auto) 0.3 % 09/27/24 15:15 Neut # (Auto) 8.84 10^3/uL (1.8-7.7) H 09/27/24 15:15 Lymph # (Auto) 2.0 10^3/uL (0.8-4.8) 09/27/24 15:15 [place] # (Auto) 0.9 10^3/uL (0.2-0.9) 09/27/24 15:15 Eos # (Auto) 0.1 10^3/uL (0.0-0.8) 09/27/24 15:15 Baso # (Auto) 0.0 10^3/uL (0.0-0.1) 09/27/24 15:15 Nucleated RBC % (auto) 0 % 09/27/24 15:15 Nucleated RBCs # 0.0 /100WBC 09/27/24 15:15 Sodium 141 mmol/L (136-145) 09/27/24 15:15 Potassium 3.6 mmol/L (3.5-5.1) 09/27/24 15:15 Chloride 107 mmol/L (98-107) 09/27/24 15:15 Carbon Dioxide 22 mmol/L (22-29) 09/27/24 15:15 Anion Gap 15.6 (5-19) 09/27/24 15:15 BUN 12 mg/dL (6-20) 09/27/24 15:15 Creatinine 0.6 mg/dL (0.5-0.9) 09/27/24 15:15 GFR Calculation 120.8 mL/min (90-130) 09/27/24 15:15 Glucose 96 mg/dL (65-115) 09/27/24 15:15 Calculated Osmolality 292 mOsm/kg (285-295) 09/27/24 15:15 Calcium 8.2 mg/dL (8.5-10.5) L 09/27/24 15:15 Total Bilirubin 0.2 mg/dL (0.15-1.2) 09/27/24 15:15 AST 12 U/L (0-32) 09/27/24 15:15 ALT 9 U/L (0-33) 09/27/24 15:15 Alkaline Phosphatase 101 U/L (35-105) 09/27/24 15:15 C-Reactive Protein 11.0 mg/L (0.0-4.9) H 09/27/24 15:15 Total Protein 6.8 g/dL (6.6-8.7) 09/27/24 15:15 Albumin 3.7 g/dL (3.5-5.2) 09/27/24 15:15 Globulin 3.1 g/dL (1.3-4.6) 09/27/24 15:15 Lipase 22 U/L (13-60) 09/27/24 15:15 HCG, Qual Negative (Negative) 09/27/24 15:15 Urine Color Red (Yellow) A 09/27/24 16:00 Urine Appearance Cloudy (CLEAR) A 09/27/24 16:00 Urine pH 5.0 (5-7) 09/27/24 16:00 Ur Specific [place] 1.022 (1.005-1.030) 09/27/24 16:00 Urine Protein 2+ (Negative) A 09/27/24 16:00 Urine Glucose (UA) Negative (Normal) 09/27/24 16:00 Urine Ketones Negative (Negative) 09/27/24 16:00 Urine Blood 3+ (Negative) A 09/27/24 16:00 Urine Nitrate Negative (Negative) 09/27/24 16:00 Urine Bilirubin Negative (Negative) 09/27/24 16:00 Urine Urobilinogen 1.0 mg/dL (Negative) 09/27/24 16:00 Ur Leukocyte Esterase 1+ (Negative) A 09/27/24 16:00 Urine RBC >100 /hpf (0-2) H 09/27/24 16:00 Urine WBC 21-50 /hpf (0-5) H 09/27/24 16:00 Ur Squamous Epith Cells 0-5 /hpf (0-5) 09/27/24 16:00 Amorphous Sediment Not Reportable 09/27/24 16:00 Urine Bacteria None seen /hpf (NONE) 09/27/24 16:00 Hyaline Casts 1.13 /lpf 09/27/24 16:00 All radiology interpretation(s) finalized by discharge Discharge Plan Discharge Patient Disposition: Home Clinical Impression: Urinary tract infection Condition: Stable Prescriptions: New cefdinir 300 mg capsule 300 mg PO BID 7 Days Qty: 14 0RF diclofenac sodium 50 mg tablet,delayed release (DR/EC) 50 mg PO BID PRN (Reason: pain) Qty: 14 0RF No Action venlafaxine [Effexor XR] 37.5 mg capsule,extended release 24hr 37.5 mg PO DAILY Qty: 30 5RF chlorhexidine gluconate [Peridex] 0.12 % mouthwash 15 ml buccal BID Qty: 473 5RF ibuprofen 800 mg tablet 800 mg PO Q8H Qty: 15 0RF Discharge Orders: Discharge ED (Routine); Ordered 09/27/24 Ordered By: Nurys Piedra Referrals: Zac Shukla, [facility] TECHNICIAN-C [Primary Care Provider] - Discharge Diet: Usual diet Discharge Activity: Increase activity as tolerated Patient Instructions: Urinary Tract Infection in Women (ED), Opioid Safety, Pain Management Activity Restrictions/Additional Instructions: Thank you for choosing [facility] for your healthcare needs today. Please realize this is an emergency room and that we are providing you with a medical screening exam and this may not be complete and all inclusive of all the testing and or work up that you may need to determine your ailment or severity of your illness. You have been screened and evaluated and felt safe for discharge. Health conditions do change or evolve sometimes and as such it is important that you follow up with your Primary Doctor to be re checked, 3-5 days is a general good time frame for follow up. You are always welcome to return to the ED for re assessment if your symptoms are worsening or you have new concerns Coding Level of Care Code ED Document Coordinator for Aubrey Mcdaniels
[2024-09-27] MEDS: ondansetron 2 mg/ML SDV 2 mL 4 MG IVP (15:03)
[2024-09-27] MEDS: ketorolac 30 mg/mL INJ IVP (15:03)
[2024-09-27 15:41] LABS: Basophils % 0.3 %; Eosinophils # 0.1 10^3/uL (0.0-0.8); Hematocrit 39.7 % (36-47); Lymphocytes % 16.9 %; Mean Corpuscular HGB Conc 31.7 g/dL (30-55); Mean Corpuscular Hemoglobin 26.7 pg (27-33); Mean Corpuscular Volume 84.1 fl (85-98); Monocytes # 0.9 10^3/uL (0.2-0.9); Monocytes % 7.3 %; Neutrophils # 8.84 10^3/uL (1.8-7.7); Neutrophils % 74.1 %; Nucleated Red Blood Cells % 0 %; Platelet Count 307 10^3/cmm (157-399); Red Blood Count 4.72 10^6/uL (3.85-5.65); Red Cell Distribution Width 13.7 % (12.1-15.1); White Blood Count 11.93 10^3/uL (3.29-11.43)
[2024-09-27 15:54] LABS: HCG, Serum Qual Negative (Negative)
[2024-09-27 16:00] LABS: Alanine Aminotransferase 9 U/L (0-33); Albumin Level 3.7 g/dL (3.5-5.2); Alkaline Phosphatase 101 U/L (35-105); Aspartate Amino Transferase 12 U/L (0-32); Blood Urea Nitrogen 12 mg/dL (6-20); Calcium 8.2 mg/dL (8.5-10.5); Carbon Dioxide 22 mmol/L (22-29); Chloride 107 mmol/L (98-107); Creatinine Clr Calc Pharmacy 193.7605; Globulin 3.1 g/dL (1.3-4.6); Glomerular Filtration Rate 120.8 mL/min (90-130); Glucose 96 mg/dL (65-115); Lipase 22 U/L (13-60); Osmolality Calculated 292 mOsm/kg (285-295); Sodium 141 mmol/L (136-145); Total Bilirubin 0.2 mg/dL (0.15-1.2); Total Protein 6.8 g/dL (6.6-8.7)
--- NOTE | 2024-09-27 16:11 | CTR_ITS ---
PROCEDURE INFORMATION: Exam: CT Abdomen And Pelvis With Contrast Exam date and time: 09/27/2024 5:04 PM Age: 24 years old Clinical indication: Abdominal pain; Generalized; Prior surgery; Surgery date: 6+ months; Surgery type: Gb, csection; Additional info: Rlq abdominal pain TECHNIQUE: Imaging protocol: Computed tomography of the abdomen and pelvis with contrast. Axial, coronal and sagittal reformatted images were created and reviewed. Radiation optimization: All CT scans at this facility use at least one of these dose optimization techniques: automated exposure control; mA and/or kV adjustment per patient size (includes targeted exams where dose is matched to clinical indication); or iterative reconstruction. Contrast material: OMNIPAQUE 350; Contrast volume: 100 ml; Contrast route: INTRAVENOUS (IV); COMPARISON: CT abdomen pelvis w con* [id number] 07/16/2021 10:31 PM RADIATION DOSE METRICS: Total DLP (mGy-cm): 1279.07 FINDINGS: Liver: Mild hepatomegaly. Gallbladder and biliary ducts: Status post cholecystectomy. No biliary ductal dilatation. Pancreas: Unremarkable. Spleen: Unremarkable. Adrenal glands: Normal. No mass. Kidneys and ureters: No mass. No radiodense calculi. No hydronephrosis. Stomach and bowel: No bowel wall thickening. No obstruction. No pneumatosis. Appendix: Normal. Intraperitoneal space: No free fluid. No organized fluid collection. No free air. Vasculature: Unremarkable. No aneurysm. Lymph nodes: No pathologically enlarged lymph nodes. Urinary bladder: Unremarkable as visualized. Reproductive: Unremarkable. Bones/joints: No acute osseous abnormality. Soft tissues: Unremarkable. CT/CT abdomen pelvis w con* [id number]: 1. No CT evidence of acute intra-abdominal or pelvic pathology. 2. Additional findings, as above.
[2024-09-27 16:12] LABS: Anion Gap 15.6 (5-19); Potassium 3.6 mmol/L (3.5-5.1)
[2024-09-27 16:13] LABS: Bilirubin Urine Negative (Negative); Blood Urine 3+ (Negative); Glucose Urine UA Negative (Normal); Ketones Urine Negative (Negative); Leukocyte Esterase Urine 1+ (Negative); Nitrate Urine Negative (Negative); Protein Urine 2+ (Negative); Specific Gravity, Urine 1.022 (1.005-1.030); Urine Appearance Cloudy (CLEAR)
[2024-09-27 16:18] LABS: Add Urine Microscopic? YES; Bacteria Urine None Seen /hpf; Hyaline Casts Urine 1.13 /lpf; RBC Urine >100 /hpf (0-2); Squamous Epithelial Cell Urine 0-5 /hpf (0-5); WBC Urine 21-50 /hpf (0-5)
[2024-09-27 16:25] LABS: Add Urine Culture? Yes; Urine Color Red (Yellow)
[2024-09-27] MEDS: cefTRIAXone 1,000 mg SDV 1000 MG IVP (18:38)
== END 2024-09-27 18:59 | disposition home or self-care (01) ==
PROVIDERS: Physician Assistant; Emergency Provider Emergency Medicine; PCP Nurse Practitioner
DX: N39.0 Urinary tract infection, site not specified (principal); Z87.891 Personal history of nicotine dependence
CPT/HCPCS: 74177; 80053; 81001; 83690; 84703; 85025; 86140; 87086; 96374; 96375; 99285; J0696; J1885; J2405; Q9967

== ENCOUNTER → 2024-11-22 15:59 | Outpatient (BNVA) | payer OTHER, SELFPAY | PROVIDERS: PCP Nurse Practitioner; Visit Provider Nurse Practitioner | DX: J02.9 Acute pharyngitis, unspecified (principal); J02.8 Acute pharyngitis due to other specified organisms; B97.89 Other viral agents as the cause of diseases classified elsewhere | CPT/HCPCS: 87071; 87880 ==

== ENCOUNTER 2025-06-19 10:38 | Emergency (ER) | payer OTHER, SELFPAY ==
[2025-06-19 10:42] VITALS: BP 142/88; PULSE 75; RESP 16; TEMP 36.8; O2SAT 99
--- NOTE | 2025-06-19 10:59 | W.ED.FEMALGU ---
HPI - Female Genitourinary General: Chief complaint: Vaginal Bleeding Stated complaint: vaginal bleeding for a few weeks, cramps Time Seen by Provider: 06/19/25 10:49 History of Present Illness: 24 year old female patient presents with complaint of abnormal uterine bleeding for approximately 3 weeks, followed by a brief cessation, then recurrence with intermittent spotting. Patient reports heavy bleeding at times with noticeable clots on 06/10/2025. She describes varying intensity, from spotting only noticeable when wiping to bleeding that she could 'feel coming out.' Patient has taken three tests, all negative. She denies use of control. Patient reports normally having regular periods, though with significant pain. No known history of endometriosis or polycystic ovarian syndrome. Surgical history includes 2 years ago. Patient reports being told she had low iron during her but was not prescribed iron supplementation. She denies having a director of pulmonary unit and expresses frustration with her primary care physician, who she states attributed her bleeding to her weight without performing blood work and suggested she was prediabetic based on family history (mother has diabetes) without laboratory confirmation. Patient appears concerned about the unexplained bleeding. Related Data Previous Rx's ?Medication ?Instructions ?Recorded metformin 500 mg tablet,extended 1,000 mg (2 x 500 mg) PO DAILY #60 06/15/25 release 24 hr tabs metoprolol succinate 25 mg 25 mg PO DAILY #30 tabs 06/15/25 tablet,extended release 24 hr (Toprol XL) venlafaxine 37.5 mg 37.5 mg PO DAILY #30 caps 06/15/25 capsule,extended release 24 hr (Effexor XR) Allergies Allergy/AdvReac Type Severity Reaction Status Date / Time No Known Allergies Allergy Verified 06/15/25 10:42 Review of Systems General: Reports: 10 or more systems reviewed and unremarkable except in HPI and below PFSH ED PFSH: Medical History (Updated 06/19/25 @ 13:26 by Pascual Yoon DO) Metabolic syndrome Poison yesica dermatitis IBS (irritable bowel syndrome) Obesity, morbid, BMI 40.0-49.9 Acid reflux Surgical History Hx of cholecystectomy 2019 Family History Other Cancer Chronic kidney disease (CKD) Diabetes Hypertension Denies family history of Dementia Stroke Social History Smoking and tobacco/nicotine status: never used tobacco/nicotine Second hand smoke exposure: No Alcohol intake: current Alcohol intake frequency: holidays/special occasions only Substance/Drug Use: never Adopted: No Caregiver/support person: No Lives independently: Yes Household members: significant other Housing: House Marital status: Single Number of children: 1 service: No Current occupational status: employed Current occupation: [employer] Sexually active: Yes Do you think of yourself as: Straight/Heterosexual Current gender identity: Female Female Reproductive History: Para: 1 Physical Exam Const: COMMON NORMALS: no acute distress, patient oriented x3, alert and well nourished HENMT: COMMON NORMALS: normocephalic HEAD & SCALP: normocephalic Eye: COMMON NORMALS: Equal, round and reactive pupils present, EOMs intact bilaterally and conjunctivae normal CONJUNCTIVA: Yes conjunctivae normal PUPIL: Yes Equal, round and reactive pupils present Resp: COMMON NORMALS: normal respiratory effort, No retractions, No use of accessory muscles, clear to auscultation bilaterally and percussion normal AUSCULTATION: clear to auscultation bilaterally PERCUSSION: percussion normal Cardio: COMMON NORMALS: regular rate and regular rhythm RATE: regular rate RHYTHM: regular rhythm GI: COMMON NORMALS: Normal to inspection, nondistended, normoactive bowel sounds present, Soft to palpation, non-tender, No hepatosplenomegaly present, no masses and no bruits PALPATION: Yes Soft to palpation and Yes No hepatosplenomegaly present : COMMON NORMALS: Yes no CVA tenderness BLADDER/KIDNEY EXAM: Yes no CVA tenderness Back/Pelvis: COMMON NORMALS: no CVA tenderness Extremity: COMMON NORMALS: normal to inspection, full ROM, capillary refill normal, no joint enlargement, no clubbing, cyanosis or edema, no calf tenderness and no pedal edema Neuro: COMMON NORMALS: patient oriented x3 SENSORIUM/ORIENTATION: Yes alert Skin: COMMON NORMALS: no rashes or lesions noted, turgor normal and no jaundice GENERAL SKIN EXAM: no rashes or lesions noted and turgor normal Course ED course: Patient presents with irregular heavy bleeding. Work up here unremarkable. Reassurance and recommended follow up. Needs blood pressure rechecked. Pulse here is normal. Vital Signs: Vital signs: Vital Signs Temperature 98.2 F 06/19/25 10:42 Pulse Rate 75 06/19/25 10:42 Respiratory Rate 16 06/19/25 10:42 Blood Pressure 142/88 06/19/25 10:42 Pulse Oximetry 99 06/19/25 10:42 Oxygen Delivery Me thod Room Air 06/19/25 10:42 MDM - Female Medical Decision Making 1. Abnormal Uterine Bleeding - Differential diagnosis includes hormonal imbalance, structural abnormalities (fibroids, polyps), endometrial pathology, coagulopathy, or -related complications. - Plan to obtain blood work including CBC to assess for anemia, serum test for definitive exclusion of , and hormone panel to evaluate for endocrine abnormalities. - Will consider pelvic ultrasound based on laboratory results. - Gynecology referral likely indicated for comprehensive evaluation and management. 2. Elevated Blood Pressure (142/92) - May be related to current stress as per patient report. - Will reassess after patient has had time to rest. - If persistently elevated, will consider further workup and management. 3. Possible Iron Deficiency - History of low iron during . - Current prolonged bleeding may exacerbate any underlying deficiency. - Will assess with CBC and iron studies. 4. Reported Prediabetes (unconfirmed) - Patient reports being diagnosed without laboratory confirmation. - Will include HbA1c and fasting glucose in laboratory workup for proper assessment. Lab Data 06/19/25 11:10 06/19/25 11:10 Radiology Impressions Pelvic/Transvag US 06/19/25 11:02 IMPRESSION: No acute findings. Laboratory Results WBC 7.05 10^3/uL (3.29-11.43) 06/19/25 11:10 RBC 4.96 10^6/uL (3.85-5.65) 06/19/25 11:10 Hgb 13.00 g/dL (11.27-16.99) 06/19/25 11:10 Hct 41.6 % (36-47) 06/19/25 11:10 MCV 83.9 fl (85-98) L 06/19/25 11:10 MCH 26.2 pg (27-33) L 06/19/25 11:10 MCHC 31.3 g/dL (30-55) 06/19/25 11:10 RDW 13.4 % (12.1-15.1) 06/19/25 11:10 Plt Count 366 10^3/cmm (157-399) 06/19/25 11:10 MPV 9.5 fL (7.4-10.4) 06/19/25 11:10 Neut % (Auto) 54.9 % 06/19/25 11:10 Lymph % (Auto) 35.0 % 06/19/25 11:10 [place] % (Auto) 7.4 % 06/19/25 11:10 Eos % (Auto) 2.0 % 06/19/25 11:10 Baso % (Auto) 0.4 % 06/19/25 11:10 Neut # (Auto) 3.87 10^3/uL (1.8-7.7) 06/19/25 11:10 Lymph # (Auto) 2.5 10^3/uL (0.8-4.8) 06/19/25 11:10 [place] # (Auto) 0.5 10^3/uL (0.2-0.9) 06/19/25 11:10 Eos # (Auto) 0.1 10^3/uL (0.0-0.8) 06/19/25 11:10 Baso # (Auto) 0.0 10^3/uL (0.0-0.1) 06/19/25 11:10 Nucleated RBC % (auto) 0 % 06/19/25 11:10 Nucleated RBCs # 0.0 /100WBC 06/19/25 11:10 Sodium 138 mmol/L (136-145) 06/19/25 11:10 Potassium 4.0 mmol/L (3.5-5.1) 06/19/25 11:10 Chloride 105 mmol/L (98-107) 06/19/25 11:10 Carbon Dioxide 23 mmol/L (22-29) 06/19/25 11:10 Anion Gap 14.0 (5-19) 06/19/25 11:10 BUN 11 mg/dL (6-20) 06/19/25 11:10 Creatinine 0.6 mg/dL (0.5-0.9) 06/19/25 11:10 GFR Calculation 120.8 mL/min (90-130) 06/19/25 11:10 Glucose 89 mg/dL (65-115) 06/19/25 11:10 Calculated Osmolality 285 mOsm/kg (285-295) 06/19/25 11:10 Calcium 8.7 mg/dL (8.5-10.5) 06/19/25 11:10 Ferritin 16 ng/mL (15-150) 06/19/25 11:10 Total Bilirubin 0.2 mg/dL (0.15-1.2) 06/19/25 11:10 AST 12 U/L (0-32) 06/19/25 11:10 ALT 12 U/L (0-33) 06/19/25 11:10 Alkaline Phosphatase 105 U/L (35-105) 06/19/25 11:10 Total Protein 7.2 g/dL (6.6-8.7) 06/19/25 11:10 Albumin 3.8 g/dL (3.5-5.2) 06/19/25 11:10 Globulin 3.4 g/dL (1.3-4.6) 06/19/25 11:10 TSH 1.69 uIU/mL (0.27-4.20) 06/19/25 11:10 FSH 9.7 mIU/mL 06/19/25 11:10 Luteinizing Hormone 7.6 mIU/mL (0.5-41.7) 06/19/25 11:10 Ser , Semi-Qnt < 1.00 mIU/mL 06/19/25 11:10 Urine Color [place] (Yellow) A 06/19/25 11:12 Urine Appearance Clear (CLEAR) 06/19/25 11:12 Urine pH 6.5 (5-7) 06/19/25 11:12 Ur Specific [place] 1.025 (1.005-1.030) 06/19/25 11:12 Urine Protein 1+ (Negative) A 06/19/25 11:12 Urine Glucose (UA) Negative (Normal) 06/19/25 11:12 Urine Ketones Trace (Negative) 06/19/25 11:12 Urine Blood 3+ (Negative) A 06/19/25 11:12 Urine Nitrate Negative (Negative) 06/19/25 11:12 Urine Bilirubin Negative (Negative) 06/19/25 11:12 Urine Urobilinogen 1.0 mg/dL (Negative) 06/19/25 11:12 Ur Leukocyte Esterase Trace (Negative) A 06/19/25 11:12 Urine RBC >100 /hpf (0-2) H 06/19/25 11:12 Urine WBC 0-5 /hpf (0-5) 06/19/25 11:12 Ur Squamous Epith Cells 0-5 /hpf (0-5) 06/19/25 11:12 Amorphous Sediment Not Reportable 06/19/25 11:12 Urine Bacteria Trace /hpf (NONE) 06/19/25 11:12 Hyaline Casts 0-4 /lpf H 06/19/25 11:12 Urine Opiates Screen Negative ng/mL (Negative) 06/19/25 11:12 Ur Barbiturates Screen Negative ng/mL (Negative) 06/19/25 11:12 Ur Phencyclidine Scrn Negative ng/mL (Negative) 06/19/25 11:12 Ur Amphetamines Screen Negative ng/mL (Negative) 06/19/25 11:12 U Benzodiazepines Scrn Negative ng/mL (Negative) 06/19/25 11:12 Urine Cocaine Screen Negative ng/mL (Negative) 06/19/25 11:12 U Marijuana (THC) Screen Negative ng/mL (Negative) 06/19/25 11:12 All radiology interpretation(s) finalized by discharge Discharge Plan Discharge Patient Disposition: Home Clinical Impression: Dysfunctional uterine bleeding Condition: Stable Prescriptions: No Action metoprolol succinate [Toprol XL] 25 mg tablet extended release 24 hr 25 mg PO DAILY Qty: 30 2RF metformin 500 mg tablet extended release 24 hr 1,000 mg PO DAILY Qty: 60 2RF venlafaxine [Effexor XR] 37.5 mg capsule,extended release 24hr 37.5 mg PO DAILY Qty: 30 5RF Discharge Orders: Discharge ED (Routine); Ordered 06/19/25 Ordered By: Pascual Yoon Referrals: Zac Shukla FNP-C [Primary Care Provider, Family Practice] Discharge Diet: Advance as tolerated Discharge Activity: Resume usual activity Patient Instructions: Opioid Safety, Pain Management, Patient Portal & Gavin Instructions Activity Restrictions/Additional Instructions: 1. Rest, fluids and take vitamin 2. Follow up with is week with PCP for recheck / discussion of hormones and further evaluation plus recheck of blood pressure readings. 3. Return for new or worsening, symptomatic bleeding. Print Language: Montserratian Coding Level of Care Code ED Ancient Art Curator for Aubrey Mcdaniels
--- NOTE | 2025-06-19 11:02 | USR_ITS ---
PROCEDURE INFORMATION: Exam: US Pelvis Transabdominal, Complete, and US Pelvis Transvaginal, Non-obstetric Exam date and time: 06/19/2025 11:58 AM Age: 24 years old Clinical indication: Pelvic pain; Prior surgery; Surgery date: 6+ months; Surgery type: C section; Additional info: Pelvic pain / bleeding TECHNIQUE: Imaging protocol: Real-time complete transabdominal and transvaginal pelvic ultrasound (non-obstetric) with image documentation. Transvaginal imaging was used for better evaluation of the endometrium, adnexa, and/or cervix. COMPARISON: US pelvis lmt w transvag 04/13/2023 11:03 PM FINDINGS: Uterus: Uterus is normal. Endometrial stripe is normal. Right ovary/adnexa: Ovary is within normal limits. 2.1 x 1.7 cm cyst or follicle. No mass. Normal arterial and venous waveforms on duplex. Left ovary/adnexa: Ovary is within normal limits. 3.3 x 3.8 cm minimally septated cyst. No mass. Normal arterial and venous waveforms on duplex. Intraperitoneal space: Minimal free fluid in the cul-de-sac. US/US pelv w/transvag [id number] IMPRESSION: No acute findings.
[2025-06-19 11:19] LABS: Hematocrit 41.6 % (36-47); Hemoglobin 13.00 g/dL (11.27-16.99); Mean Corpuscular HGB Conc 31.3 g/dL (30-55); Mean Corpuscular Hemoglobin 26.2 pg (27-33); Mean Corpuscular Volume 83.9 fl (85-98); Nucleated Red Blood Cells % 0 %; Platelet Count 366 10^3/cmm (157-399); Red Blood Count 4.96 10^6/uL (3.85-5.65); White Blood Count 7.05 10^3/uL (3.29-11.43)
[2025-06-19 11:45] LABS: Thyroid Stimulating Hormone 1.69 uIU/mL (0.27-4.20)
[2025-06-19 11:49] LABS: Follicle Stimulating Hormone 9.7 mIU/mL
[2025-06-19 11:56] LABS: Alanine Aminotransferase 12 U/L (0-33); Albumin Level 3.8 g/dL (3.5-5.2); Alkaline Phosphatase 105 U/L (35-105); Anion Gap 14.0 (5-19); Aspartate Amino Transferase 12 U/L (0-32); Blood Urea Nitrogen 11 mg/dL (6-20); Calcium 8.7 mg/dL (8.5-10.5); Carbon Dioxide 23 mmol/L (22-29); Chloride 105 mmol/L (98-107); Creatinine Clr Calc Pharmacy 201.0863; Ferritin 16 ng/mL (15-150); Globulin 3.4 g/dL (1.3-4.6); Glucose 89 mg/dL (65-115); Osmolality Calculated 285 mOsm/kg (285-295); Potassium 4.0 mmol/L (3.5-5.1); Sodium 138 mmol/L (136-145); Total Protein 7.2 g/dL (6.6-8.7)
[2025-06-19 12:25] LABS: Glucose Urine UA Negative (Normal); Nitrate Urine Negative (Negative); Specific Gravity, Urine 1.025 (1.005-1.030)
[2025-06-19 12:30] LABS: Add Urine Microscopic? YES
[2025-06-19 12:32] LABS: PCP Screen Urine Negative (Negative)
== END 2025-06-19 13:42 | disposition home or self-care (01) ==
PROVIDERS: Emergency Provider Family Medicine; PCP Nurse Practitioner
DX: N93.8 Other specified abnormal uterine and vaginal bleeding (principal); E66.01 Morbid (severe) obesity due to excess calories; Z68.42 Body mass index [BMI] 45.0-49.9, adult; Z79.84 Long term (current) use of oral hypoglycemic drugs; Z79.899 Other long term (current) drug therapy
CPT/HCPCS: 36415; 76830; 76856; 80053; 80306; 81001; 82728; 83001; 83002; 84443; 84702; 85025; 87086; 99284

== ENCOUNTER 2025-09-26 20:35 | Outpatient (CLI) | payer OTHER, SELFPAY | END 2025-09-26 20:36 | disposition home or self-care (01) | LOC: LAB 20:37 | PROVIDERS: PCP Nurse Practitioner; Visit Provider Nurse Practitioner | DX: R19.7 Diarrhea, unspecified (principal) | CPT/HCPCS: 87045; 87427; 87449 ==

== ENCOUNTER 2025-09-30 15:04 | Emergency (ER) | payer OTHER, SELFPAY ==
[2025-09-30 15:10] VITALS: BP 173/151; PULSE 124; RESP 18; TEMP 37.1; O2SAT 97
--- NOTE | 2025-09-30 15:38 | ED_ITS ---
HPI - Abdominal Pain 2 General: Chief Complaint: Abdominal Pain Stated Complaint: ABD Pain Lower back pain N/V/D Time Seen by Provider: 09/30/25 15:28 History of Present Illness: 25-year-old female presents emergency ro om with complaint of abdominal discomfort some low back pain nausea and vomiting this been going on for a week. She was seen in the urgent care advised is likely gastroenteritis advised to increase fluids. She has not had any fever denies dysuria urgency or frequency no hematochezia melena hematemesis or coffee-ground emesis. Associated Symptoms: Denies chills, dysuria and fever(s) Related Data Previous Rx's ?Medication ?Instructions ?Recorded venlafaxine 37.5 mg 37.5 mg PO DAILY #30 caps capsule,extended release 24 hr (Effexor XR) norgestimate-ethinyl estradiol 1 tab PO QDAY #84 tabs 07/14/25 0.18mg/0.215mg/0.25mg-0.035mg(28)tablet (Ortho Tri-Cyclen (28)) hydrocodone 5 mg-acetaminophen 325 1 tab PO Q6H PRN pa in #7 tabs 09/30/25 mg tablet promethazine 25 mg tablet 25 mg PO Q6H PRN nausea and 09/30/25 vomiting #20 tabs tizanidine 4 mg tablet 4 mg PO Q6H PRN muscle spast icity 09/30/25 #20 tabs amoxicillin 875 mg-potassium 1 tab PO BID 10 days #20 tabs 10/02/25 clavulanate 125 mg tablet ibuprofen 800 mg tablet 800 mg PO Q8H PRN pain #30 t abs 10/02/25 Allergies Allergy/AdvReac Type Severity Reaction Status Date / Time No Known Allergies Allergy Verified 10/02/25 12:20 Review of Systems 2 Const: Denies: fever(s) or chills Card: Denies: chest pain Resp: Denies: dyspnea GI: Denies: abdominal pain : Denies: dysuria, urinary frequency or urinary urgency Musc: Denies: neck pain or back pain Skin/Breast: Denies: rash PFSH ED 2 PFSH: Medical History Metabolic syndrome Poison yesica dermatitis IBS (irritable bowel syndrome) Obesity, morbid, BMI 40.0-49.9 Acid reflux Surgical History Hx of cholecystectomy 2019 Family History Other Cancer Chronic kidney disease (CKD) Diabetes Hypertension Denies family history of Dementia Stroke Social History Smoking and tobacco/nicotine status: never used tobacco/nicotine Second hand smoke exposure: No Alcohol intake: current Alcohol intake frequency: holidays/special occasions only Substance/Drug Use: never Adopted: No Caregiver/support person: No Lives independently: Yes Household members: significant other Housing: House Marital status: Single Number of children: 1 service: No Current occupational status: employed Current occupation: [employer] Sexually active: Yes Do you think of yourself as: Straight/Heterosexual Current gender identity: Female Female Reproductive History: Para: 1 Physical Exam 2 Const: GENERAL APPEARANCE: cooperative ORIENTATION/CONSCIOUSNESS: Yes awake, Yes oriented to person, Yes oriented to place and Yes oriented to time HENMT: COMMON NORMALS: normocephalic, atraumatic and hearing grossly normal bilaterally HEAD & SCALP: normocephalic and atraumatic Resp: COMMON NORMALS: normal respiratory effort, No retractions, No use of accessory muscles and clear to auscultation bilaterally AUSCULTATION: clear to auscultation bilaterally Cardio: COMMON NORMALS: regular rate, regular rhythm and No murmurs present (Cardio) RATE: regular rate RHYTHM: regular rhythm GI: COMMON NORMALS: No hepatosplenomegaly present AUSCULTATION: Yes normoactive bowel sounds PALPATION: Yes Tenderness to palpation present (GI) (Nonfocal), No Guarding due to palpation present (GI) and Yes No hepatosplenomegaly present Extremity: COMMON NORMALS: normal to inspection, capillary refill normal, no clubbing, cyanosis or edema, no calf tenderness and no pedal edema Neuro: SENSORIUM/ORIENTATION: Yes oriented to person, Yes oriented to place and Yes oriented to time Skin: COMMON NORMALS: no rashes or lesions noted GENERAL SKIN EXAM: no rashes or lesions noted Course 2 Vital Signs: Vital signs: Vital Signs Temperature 98.8 F 09/30/25 15:10 Pulse Rate 98 09/30/25 18:31 Respiratory Rate 25 H 09/30/25 18:31 Blood Pressure 144/87 09/30/25 18:31 Pulse Oximetry 99 09/30/25 18:31 Oxygen Delivery Me thod Room Air 09/30/25 18:31 MDM - Abdominal Pain Medical Decision Making Medical decision making Social determinants: None I reviewed the patient's medical record. I reviewed the patient's current home meds> Alternate historians: None Differential diagnosis: Acute appendicitis bowel obstruction mesenteric lymphadenitis pyelonephritis cystitis ovarian cyst Lab Review: White count 19,000 with a left shift. ALT very slightly elevated at 33 alk phos 119 urine shows 0-2 red blood cells 6-10 whites 0-5 squamous negative nitrite and leukocyte esterase. Suspect some degree of contaminant vaginal contamination Imaging: CT shows mesenteric lymphadenitis.. Radiology makes note of lymph nodes clustered over the right psoas muscle Assessment of risk Level of risk: moderate. Hospitalization considerations: Pending results of workup initially considered hospitalization for acute intra-abdominal pathology if Reexamination: Repeat exam patient's primary complaint now is that of back pain her abdominal pain continues to be rather nonspecific. Assessment and plan: Length of time she has had symptoms seems to suggest against acute intra-abdominal pathology her white count is significantly elevated however. CT shows mesenteric lymphadenitis. Reviewed with the patient I think a lot of her back pain is due to the fact that the lymph nodes are noted to be clustered over the psoas muscle which is causing referred pain into her back most likely. Reviewed this with her pain medications given will discharge her home clear liquid diet and advance as Toller return if has any worsening or change of symptoms. Or new symptoms. Lab Data 09/30/25 15:50 09/30/25 15:50 Labs/Radiology: Radiology Impressions Abdomen/Pelvis CT 09/30/25 16:30 IMPRESSION: 1. Small mesenteric lymph nodes, some of which are clustered along the right psoas musculature. Findings are nonspecific in appearance but can be seen with mesenteric adenitis. 2. Additional findings, as above. Laboratory Results WBC 19.70 10^3/uL (3.29-11.43) H 09/30/25 15:50 RBC 5.22 10^6/uL (3.85-5.65) 09/30/25 15:50 Hgb 14.10 g/dL (11.27-16.99) 09/30/25 15:50 Hct 43.7 % (36-47) 09/30/25 15:50 MCV 83.7 fl (85-98) L 09/30/25 15:50 MCH 27.0 pg (27-33) 09/30/25 15:50 MCHC 32.3 g/dL (30-55) 09/30/25 15:50 RDW 13.3 % (12.1-15.1) 09/30/25 15:50 Plt Count 342 10^3/cmm (157-399) 09/30/25 15:50 MPV 9.9 fL (7.4-10.4) 09/30/25 15:50 Neut % (Auto) 87.6 % 09/30/25 15:50 Lymph % (Auto) 6.0 % 09/30/25 15:50 [place] % (Auto) 5.2 % 09/30/25 15:50 Eos % (Auto) 0.4 % 09/30/25 15:50 Baso % (Auto) 0.2 % 09/30/25 15:50 Neut # (Auto) 17.25 10^3/uL (1.8-7.7) H 09/30/25 15:50 Lymph # (Auto) 1.2 10^3/uL (0.8-4.8) 09/30/25 15:50 [place] # (Auto) 1.0 10^3/uL (0.2-0.9) H 09/30/25 15:50 Eos # (Auto) 0.1 10^3/uL (0.0-0.8) 09/30/25 15:50 Baso # (Auto) 0.0 10^3/uL (0.0-0.1) 09/30/25 15:50 Nucleated RBC % (auto) 0 % 09/30/25 15:50 Nucleated RBCs # 0.0 /100WBC 09/30/25 15:50 Sodium 135 mmol/L (136-145) L 09/30/25 15:50 Potassium 4.0 mmol/L (3.5-5.1) 09/30/25 15:50 Chloride 98 mmol/L (98-107) 09/30/25 15:50 Carbon Dioxide 25 mmol/L (22-29) 09/30/25 15:50 Anion Gap 16.0 (5-19) 09/30/25 15:50 BUN 8 mg/dL (6-20) 09/30/25 15:50 Creatinine 0.6 mg/dL (0.5-0.9) 09/30/25 15:50 GFR Calculation 119.9 mL/min (90-130) 09/30/25 15:50 Glucose 91 mg/dL (65-115) 09/30/25 15:50 Calculated Osmolality 278 mOsm/kg (285-295) L 09/30/25 15:50 Lactic Acid 1.0 mmol/L (0.5-2.2) 09/30/25 15:50 Calcium 9.2 mg/dL (8.5-10.5) 09/30/25 15:50 Total Bilirubin 0.5 mg/dL (0.15-1.2) 09/30/25 15:50 AST 19 U/L (0-32) 09/30/25 15:50 ALT 34 U/L (0-33) H 09/30/25 15:50 Alkaline Phosphatase 119 U/L (35-105) H 09/30/25 15:50 Total Protein 7.8 g/dL (6.6-8.7) 09/30/25 15:50 Albumin 4.1 g/dL (3.5-5.2) 09/30/25 15:50 Globulin 3.7 g/dL (1.3-4.6) 09/30/25 15:50 Lipase 25 U/L (13-60) 09/30/25 15:50 HCG, Qual Negative (Negative) 09/30/25 16:12 Urine Color Yellow (Yellow) 09/30/25 16:34 Urine Appearance Clear (CLEAR) 09/30/25 16:34 Urine pH 7.5 (5-7) 09/30/25 16:34 Ur Specific [place] 1.020 (1.005-1.030) 09/30/25 16:34 Urine Protein Trace (Negative) A 09/30/25 16:34 Urine Glucose (UA) Negative (Normal) 09/30/25 16:34 Urine Ketones Negative (Negative) 09/30/25 16:34 Urine Blood 3+ (Negative) A 09/30/25 16:34 Urine Nitrate Negative (Negative) 09/30/25 16:34 Urine Bilirubin Negative (Negative) 09/30/25 16:34 Urine Urobilinogen 1.0 mg/dL (Negative) 09/30/25 16:34 Ur Leukocyte Esterase Negative (Negative) 09/30/25 16:34 Urine RBC 0-2 /hpf (0-2) 09/30/25 16:34 Urine WBC 6-10 /hpf (0-5) 09/30/25 16:34 Ur Squamous Epith Cells 0-5 /hpf (0-5) 09/30/25 16:34 Amorphous Sediment Not Reportable 09/30/25 16:34 Urine Bacteria None seen /hpf (NONE) 09/30/25 16:34 Hyaline Casts 2.46 /lpf 09/30/25 16:34 All radiology interpretation(s) finalized by discharge Discharge Plan Discharge Patient Disposition: Home Clinical Impression: Mesenteric lymphadenitis Condition: Stable Prescriptions: New hydrocodone-acetaminophen 5-325 mg tablet 1 tab PO Q6H PRN (Reason: pain) Qty: 7 0RF promethazine 25 mg tablet 25 mg PO Q6H PRN (Reason: nausea and vomiting) Qty: 20 0RF tizanidine 4 mg tablet 4 mg PO Q6H PRN (Reason: muscle spasticity) Qty: 20 0RF Rx Instructions: do not exceed 3 doses per 24 hrs No Action venlafaxine [Effexor XR] 37.5 mg capsule,extended release 24hr 37.5 mg PO DAILY Qty: 30 5RF norgestimate-ethinyl estradiol [Ortho Tri-Cyclen (28)] 0.18/0.215/0.25 mg- 0.035mg (28) tablet 1 tab PO QDAY Qty: 84 0RF amoxicillin-pot clavulanate 875-125 mg tablet 1 tab PO BID 10 Days Qty: 20 0RF ibuprofen 800 mg tablet 800 mg PO Q8H PRN (Reason: pain) Qty: 30 0RF Discharge Orders: Discharge ED (Routine); Ordered 09/30/25 Ordered By: Rashid Harden Referrals: Zac Shukla, PORTFOLIO ADMINISTRATOR-C [Primary Care Provider, Family Practice] Discharge Diet: Full LIquid Discharge Activity: Increase activity as tolerated Patient Instructions: Abdominal Pain (ED), Opioid Safety, Pain Management, Patient Portal & Gavin Instructions Activity Restrictions/Additional Instructions: [facility]. It is very important that you follow up as instructed or that you return to the Emergency Department should you have concerns or if your condition changes or worsens in any way. Emergency department visits are focused on emergent conditions, in some cases you may require further evaluation on an outpatient basis. You are seen emergency room with complaints of abdominal pain. CT showed a normal appendix. There is inflamed lymph nodes in the abdomen. No other abnormalities were seen on the CT. Your white count was mildly elevated urine did not show signs of infection. Your chemistries were not significantly abnormal and there is no sign of dehydration. You were given IV fluids while in the emergency room. Recommended liquid diet for the next 2 to 3 days and advance as tolerated. You are also given hydrocodone for pain and promethazine for nausea and vomiting. (Please note that included in your discharge packet is information concerning opioid safety and pain management. This information is given to all patients were discharged from the ER regardless of their discharge diagnosis or the medicines they usually take or are prescribed.) Print Language: Turkish Coding Level of Care Code ED Obstetrician And Gynaecologist for Aubrey Mcdaniels
--- NOTE | 2025-09-30 15:52 | ECG_ITS ---
[facility] Test Date: 2025-09-30 Pat Name: Heron Scott Department: Room: Gender: Female Faucet Polisher: : 2000 Requested By: Rashid Monroe Order Number: [id number] Cassie MD: Jean Claude Herring M.D. Measurements Intervals [place] Rate: 122 P: 37 UT: 158 QRS: 12 QRSD: 98 T: 30 QT: 314 QTc: 449 Interpretive Statements SINUS TACHYCARDIA ABNORMAL RHYTHM ECG No previous ECG available for comparison Electronically Signed On 10-01-2025 14:20:07 POLICY SERVICE COORDINATOR by Jean Claude Herring M.D. [email or web address]
[2025-09-30 15:56] VITALS: BP 155/89; PULSE 124; RESP 18; O2SAT 100
[2025-09-30 15:59] LABS: Hematocrit 43.7 % (36-47); Hemoglobin 14.10 g/dL (11.27-16.99); Mean Corpuscular HGB Conc 32.3 g/dL (30-55); Mean Corpuscular Hemoglobin 27.0 pg (27-33); Mean Corpuscular Volume 83.7 fl (85-98); Nucleated Red Blood Cells % 0 %; Platelet Count 342 10^3/cmm (157-399); Red Blood Count 5.22 10^6/uL (3.85-5.65); White Blood Count 19.70 10^3/uL (3.29-11.43)
[2025-09-30 16:16] VITALS: PULSE 120; RESP 18; O2SAT 100
[2025-09-30 16:23] LABS: Alanine Aminotransferase 34 U/L (0-33); Albumin Level 4.1 g/dL (3.5-5.2); Alkaline Phosphatase 119 U/L (35-105); Aspartate Amino Transferase 19 U/L (0-32); Blood Urea Nitrogen 8 mg/dL (6-20); Calcium 9.2 mg/dL (8.5-10.5); Carbon Dioxide 25 mmol/L (22-29); Chloride 98 mmol/L (98-107); Globulin 3.7 g/dL (1.3-4.6); Glucose 91 mg/dL (65-115); Lipase 25 U/L (13-60); Osmolality Calculated 278 mOsm/kg (285-295); Sodium 135 mmol/L (136-145); Total Protein 7.8 g/dL (6.6-8.7)
[2025-09-30 16:24] LABS: Anion Gap 16.0 (5-19); Lactic Sepsis W/Reflex 1.0 mmol/L (0.5-2.2); Potassium 4.0 mmol/L (3.5-5.1)
--- NOTE | 2025-09-30 16:30 | CTR_ITS ---
PROCEDURE INFORMATION: Exam: CT Abdomen And Pelvis Without Contrast Exam date and time: 09/30/2025 4:50 PM Age: 25 years old Clinical indication: Abdominal tenderness and nausea and vomiting; Abdominal pain; Generalized; Prior surgery; Surgery date: 6+ months; Surgery type: Gb, c section TECHNIQUE: Imaging protocol: Computed tomography of the abdomen and pelvis without contrast. Axial, coronal and sagittal reformatted images were created and reviewed. Radiation optimization: All CT scans at this facility use at least one of these dose optimization techniques: automated exposure control; mA and/or kV adjustment per patient size (includes targeted exams where dose is matched to clinical indication); or iterative reconstruction. COMPARISON: CT abdomen pelvis w con* [id number] 09/27/2024 5:04 PM RADIATION DOSE METRICS: Total DLP (mGy-cm): 1439 FINDINGS: Liver: Mild hepatomegaly. Gallbladder and biliary ducts: Status post cholecystectomy. No biliary ductal dilatation. Pancreas: Unremarkable. Spleen: Unremarkable. Adrenal glands: Normal. No mass. Kidneys and ureters: No mass. No radiodense calculi. No hydronephrosis. Stomach and bowel: No bowel wall thickening. No obstruction. No pneumatosis. Appendix: Normal. Intraperitoneal space: No free fluid. No organized fluid collection. No free air. Vasculature: Unremarkable. No aneurysm. Lymph nodes: Small mesenteric lymph nodes, some of which are clustered along the right psoas musculature. No pathologically enlarged lymph nodes. Urinary bladder: Unremarkable as visualized. Reproductive: Probable dominant left ovarian follicle versus follicular cyst. Bones/joints: No acute osseous abnormality. Soft tissues: Unremarkable. CT/CT abdomen pelvis con [id number] IMPRESSION: 1. Small mesenteric lymph nodes, some of which are clustered along the right psoas musculature. Findings are nonspecific in appearance but can be seen with mesenteric adenitis. 2. Additional findings, as above.
[2025-09-30 16:42] LABS: Glucose Urine UA Negative (Normal); Nitrate Urine Negative (Negative); Specific Gravity, Urine 1.020 (1.005-1.030)
[2025-09-30 16:42] LABS: HCG, Serum Qual Negative (Negative)
[2025-09-30 16:44] LABS: Add Urine Microscopic? YES
[2025-09-30 17:45] VITALS: PULSE 126; RESP 16; O2SAT 100
[2025-09-30] MEDS: morphine 4 mg/mL SDV 1 mL IVP ×2 (17:51→20:11)
[2025-09-30] MEDS: ondansetron 2 mg/ML SDV 2 mL 4 MG IVP (17:51)
[2025-09-30 17:57] VITALS: BP 105/73; PULSE 115; RESP 18; O2SAT 100
[2025-09-30 18:31] VITALS: BP 144/87; PULSE 98; RESP 25; O2SAT 99
--- NOTE | 2025-09-30 18:36 | ECG_ITS ---
[facility]25[facility]30 Pat Name: Heron Scott Department: Room: Gender: Female Cop Winder: : 2000 Requested By: Rashid Monroe Order Number: [id number] Cassie MD: Jean Claude Herring M.D. Measurements Intervals [place] Rate: 91 P: 34 OR: 152 QRS: 16 QRSD: 97 T: 46 QT: 348 QTc: 429 Interpretive Statements SINUS RHYTHM Compared to ECG 09/30/2025 15:52:26 Sinus tachycardia no longer present Electronically Signed On 10-01-2025 14:18:24 DIANETIC COUNSELOR by Jean Claude Herring M.D. [email or web address]
[2025-09-30] MEDS: orphenadrine 30 mg/mL Inj 2 mL 60 MG IM (20:11)
== END 2025-09-30 20:23 | disposition home or self-care (01) ==
PROVIDERS: Physician Assistant; Emergency Provider Family Medicine; PCP Nurse Practitioner
DX: I88.0 Nonspecific mesenteric lymphadenitis (principal)
CPT/HCPCS: 36415; 74176; 80053; 81001; 83605; 83690; 84703; 85025; 87040; 87086; 93005; 96361; 96374; 96375; 96376; 99285; J0780; J2270; J2360; J2405; J7030

== ENCOUNTER → 2025-10-02 12:29 | Outpatient (BNVA) | payer OTHER, SELFPAY | PROVIDERS: PCP Nurse Practitioner; Visit Provider Emergency Medicine | DX: J02.9 Acute pharyngitis, unspecified (principal); J35.1 Hypertrophy of tonsils | CPT/HCPCS: 87071; 87880 ==

== ENCOUNTER → 2025-10-20 16:08 | Outpatient (BNVA) | payer OTHER, SELFPAY | PROVIDERS: PCP Nurse Practitioner; Visit Provider Nurse Practitioner | DX: R53.83 Other fatigue (principal) | CPT/HCPCS: 80053; 85025; 86308 ==